=== PATIENT | female | born 1975 ===

== ENCOUNTER 2016-11-09 09:29 | Emergency (ER) | payer OTHER ==
[2016-11-09 09:41] VITALS: RESP 16; TEMP 97.7; O2SAT 98
[2016-11-09 10:16] LABS: RBC URINE 21 /hpf (0-3); URINE BACTERIA RARE (<OCC); URINE BILIRUBIN NEGATIVE (NEGATIVE); URINE BLOOD 1+ (NEGATIVE); URINE COLOR Amber (YELLOW); URINE GLUCOSE (UA) NORMAL (Normal); URINE KETONE NEGATIVE (NEGATIVE); URINE LEUKOCYTE ESTERASE 2+ Leu/uL (Negative); URINE PROTEIN 2+ mg/dL (NEGATIVE); WBC URINE 50 /hpf (0-5)
[2016-11-09 10:20] LABS: BASO # 0.1 K/uL (0.0-0.2); BASO % 0.6 % (0.0-2.0); EOS # 0.1 K/uL (0.0-0.7); EOS % 1.1 % (0.0-4.0); HEMATOCRIT 34.7 % (34.0-47.0); LYMPH # 1.9 K/uL (1.0-4.3); LYMPH % 15.8 % (20.0-40.0); MEAN CELL VOLUME 93.6 fL (81.0-99.0); MEAN CORPUSCULAR HEMOGLOBIN 31.7 pg (27.0-31.0); MEAN CORPUSCULAR HGB CONC 33.9 g/dL (33.0-37.0); MEAN PLATELET VOLUME 9.7 fL (7.2-11.7); MONO # 0.7 K/uL (0.0-0.8); MONO % 6.2 % (0.0-10.0); RED CELL DISTRIBUTION WIDTH 13.2 % (11.5-14.5); WHITE BLOOD COUNT 11.8 K/uL (4.8-10.8)
[2016-11-09 10:36] LABS: CHLORIDE 104 mmol/L (98-107); POTASSIUM 3.9 mmol/L (3.6-5.2); SODIUM 141 mmol/L (132-148)
[2016-11-09 10:38] LABS: GFR AFRICAN-AMERICAN > 60
[2016-11-09 10:39] LABS: ALKALINE PHOSPHATASE 130 U/L (38-126); ALT/SGPT 148 U/L (9-52); AST/SGOT 75 U/L (14-36); BLOOD UREA NITROGEN 9 mg/dL (7-17); CARBON DIOXIDE 23 mmol/L (22-30); GLUCOSE,RANDOM 130 mg/dL (65-105); TOTAL PROTEIN 8.5 g/dL (6.3-8.3)
[2016-11-09 10:40] LABS: ALB/GLOB RATIO 0.8 (1.0-2.1); CALCIUM 8.9 mg/dl (8.6-10.4)
--- NOTE | 2016-11-09 11:31 | CT ---
PROCEDURE: CT Abdomen and Pelvis without intravenous contrast HISTORY: left flank pain - ? kidney stone COMPARISON: None. TECHNIQUE: Without contrast.. Contrast Dose: 0 Radiation dose: Total exam DLP = 939.05 mGy-cm. This CT exam was performed using one or more of the following dose reduction techniques: Automated exposure control, adjustment of the mA and/or kV according to patient size, and/or use of iterative reconstruction technique. FINDINGS: LOWER THORAX: Unremarkable. LIVER: Unremarkable. No gross lesion or ductal dilatation. GALLBLADDER AND BILE DUCTS: Cholelithiasis. Probable sludge within the gallbladder, dependently. No mural thickening or pericholecystic fluid. PANCREAS: Unremarkable. No gross lesion or ductal dilatation. SPLEEN: Unremarkable. ADRENALS: Unremarkable. No mass. KIDNEYS AND URETERS: Tiny left renal nonobstructing calculus, 2-3 mm. No right renal calculus. No renal mass or hydronephrosis. There is mild left perigastric stranding common nonspecific. There is no perinephric fluid. There is no hydroureter or ureteral calculus. There is mild left periureteric stranding. This may indicate a recently passed urinary calculus. VASCULATURE: Unremarkable. No aortic aneurysm. BOWEL: Mild sigmoid diverticulosis. No evidence of diverticulitis. No other abnormal bowel loops are identified. Scattered colonic diverticulae are noted elsewhere. No bowel obstruction APPENDIX: Unremarkable. Normal appendix. PERITONEUM: Unremarkable. No free fluid. No free air. LYMPH NODES: Unremarkable. No enlarged lymph nodes. BLADDER: Unremarkable. REPRODUCTIVE: Uterus significant for intrauterine device. Left ovarian cyst, 4.0 cm. Recommend evaluation with transvaginal pelvic ultrasound examination. 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 OTHER FINDINGS: None. IMPRESSION: No evidence of urinary tract obstruction. Tiny nonobstructing left renal calculus. Mild left perinephric stranding and left periureteric stranding indicative of possible recently passed left urinary calculus. Please correlate clinically. 4 cm left ovarian cyst. Recommend evaluation with transvaginal pelvic ultrasound. Additional minor findings as above.
[2016-11-09 12:17] VITALS: BP 119/85; PULSE 70
--- NOTE | 2016-11-09 13:19 | C.PDOC ---
History Of Present Illness 41 y/o female presents to ED with complaints of left flank pain for 4 days. Patient states she saw PMD yesterday was prescribed antibiotics and Naprosyn with no relief which prompted visit to ed today. Patient reprots mild nausea but denies fever, chills, dysuria, hematuria, vomiting or any other complaints at this time. Time Seen by Provider: 11/09/16 09:39 Chief Complaint (Nursing): Back Pain History Per: Patient History/Exam Limitations: no limitations Onset/Duration Of Symptoms: Days Current Symptoms Are (Timing): Still Present Quality Of Discomfort: "Pain" Past Medical History Reviewed: Historical Data, Nursing Documentation, Vital Signs Vital Signs: Last Vital Signs Temp 97.7 F 11/09/16 09:36 Pulse 70 11/09/16 12:16 Resp 16 11/09/16 12:16 BP 119/85 11/09/16 12:16 Pulse Ox 98 11/09/16 13:21 - Medical History PMH: Anemia, Diabetes Surgical History: No Surg Hx Family History: States: No Known Family Hx - Social History Hx Alcohol Use: Yes Hx Substance Use: No Review Of Systems Except As Marked, All Systems Reviewed And Found Negative. Constitutional: Negative for: Fever, Chills Gastrointestinal: Negative for: Nausea, Vomiting Genitourinary: Negative for: Dysuria, Hematuria Musculoskeletal: Positive for: Other (Flank pain) Skin: Negative for: Rash Neurological: Negative for: Weakness, Numbness Physical Exam - Physical Exam Appears: Non-toxic, No Acute Distress Skin: Warm, Dry, No Rash Head: Atraumatic, Normacephalic Eye(s): bilateral: Normal Inspection Oral Mucosa: Moist Neck: Normal ROM, Supple Chest: Symmetrical Gastrointestinal/Abdominal: Soft, No Tenderness, No Guarding, No Rebound Back: CVA Tenderness, No Vertebral Tenderness, No Paraspinal Tenderness Extremity: Normal ROM, Capillary Refill (<2 seconds), No Deformity, No Swelling Neurological/Psych: Oriented x3, Normal Motor, Normal Sensation ED Course And Treatment - Laboratory Results Result Diagrams: 11/09/16 10:00 11/09/16 10:00 O2 Sat by Pulse Oximetry: 98 (RA) Pulse Ox Interpretation: Normal Disposition - Disposition Disposition: HOME/ ROUTINE Disposition Time: 11:40 Condition: GOOD Additional Instructions: Thank you for letting us take care of you today. Your provider was Dr. Matos. You were treated for a UTI and passed kidney stone. The emergency medical care you received today was directed at your acute symptoms. If you were prescribed any medication, please fill it and take as directed. It may take several days for your symptoms to resolve. Return to the Emergency Department if your symptoms worsen, do not improve, or if you have any other problems. Please contact your doctor or call one of the physicians/clinics you have been referred to that are listed on the Patient Visit Information form that is included in your discharge packet. Bring any paperwork you were given at discharge with you along with any medications you are taking to your follow up visit. Our treatment cannot replace ongoing medical care by a primary care provider (PCP) outside of the emergency department. Thank you for allowing the [facility] team to be part of your care today. Follow up with your doctor in 2-3 days for re-evaluation and further management. Continue taking the medication that you were already prescribed. Instructions: Urinary Tract Infection in Women (ED) Forms: Gen Discharge Inst Thai Print Language: SLOVENIAN - Clinical Impression Clinical Impression: UTI (urinary tract infection), Kidney stone - Scribe Statement The provider has reviewed the documentation as recorded by the Dolores Amin All medical record entries made by the Dolores were at my direction and personally dictated by me. I have reviewed the chart and agree that the record accurately reflects my personal performance of the history, physical exam, medical decision making, and the department course for this patient. I have also personally directed, reviewed, and agree with the discharge instructions and disposition.
== END 2016-11-09 12:16 | disposition home or self-care (01) ==
LOC: C.ER 09:29
DX: N20.0 Calculus of kidney (principal); N39.0 Urinary tract infection, site not specified
CPT/HCPCS: 74176; 80053; 81001; 84703; 85025; 96374; 99283; J1885

== ENCOUNTER 2016-11-21 08:35 | Inpatient (IN) | payer OTHER ==
[2016-11-21] MEDS ORDERED: Sodium Chloride 0.9% 1,000 ML IV ONE ×2 (09:09→12:18)
--- NOTE | 2016-11-21 09:12 | C.PDOC ---
History Of Present Illness 41 yo female who recently diagnosed with left kidney stones 2 weeks ago, comes in for evaluation of lower back pain and left groin pain worsen for past few weeks. Pt admits was seen here in ED on 11/09/16 when was diagnosed with UTI, received abx Cipro with mild improvement in back pain. For past few days, developed chills, fever, and worsening of lower back pain. Otherwise, pt denies sore throat, neck pain, cough, CP, SOB, wheezing, diaphoresis, V/D, UTI sx, hematuria, denies vaginal irritation or discharges. Ambulate to Ed for evaluation, not in any apparent distress. Time Seen by Provider: 11/21/16 08:44 Chief Complaint (Nursing): Female Genitourinary History Per: Patient History/Exam Limitations: no limitations Onset/Duration Of Symptoms: Days Current Symptoms Are (Timing): Still Present Past Medical History Reviewed: Historical Data, Nursing Documentation, Vital Signs Vital Signs: Last Vital Signs Temp 98.3 F 11/21/16 11:57 Pulse 74 11/21/16 11:57 Resp 16 11/21/16 11:57 BP 102/65 11/21/16 11:57 Pulse Ox 98 11/21/16 12:12 - Medical History PMH: Anemia, Diabetes, Kidney Stones, Chronic Kidney Disease Family History: States: No Known Family Hx - Social History Hx Alcohol Use: No Hx Substance Use: No - Immunization History Hx Tetanus Toxoid Vaccination: No Hx Influenza Vaccination: Yes Hx Pneumococcal Vaccination: No Review Of Systems Except As Marked, All Systems Reviewed And Found Negative. Constitutional: Positive for: Fever (Subjective ), Chills ENT: Negative for: Throat Pain Cardiovascular: Negative for: Chest Pain Respiratory: Negative for: Cough, Shortness of Breath, Wheezing Gastrointestinal: Negative for: Vomiting, Abdominal Pain, Diarrhea Genitourinary: Positive for: Other ((+) Left groin pain). Negative for: Hematuria, Vaginal Discharge Musculoskeletal: Positive for: Back Pain (Lower ). Negative for: Neck Pain Physical Exam - Physical Exam Appears: Well, Non-toxic, No Acute Distress Skin: Normal Color, Warm, Dry, No Rash Eye(s): bilateral: PERRL Nose: No Flaring, No Discharge Oral Mucosa: Moist, No Drooling Tongue: Normal Appearing Lips: Normal Appearing Throat: No Erythema, No Exudate, No Drooling Neck: Supple Cardiovascular: Rhythm Regular Respiratory: No Decreased Breath Sounds, No Accessory Muscle Use, No Stridor, No Wheezing, No Plerual Rub Gastrointestinal/Abdominal: Bowel Sounds, No Tenderness, No Organomegaly, No Distention, No Guarding Back: No CVA Tenderness, Paraspinal Tenderness (diffused lumbar) Extremity: Normal ROM, No Pedal Edema, No Deformity ED Course And Treatment - Laboratory Results Result Diagrams: 11/21/16 09:37 11/21/16 09:37 Lab Interpretation: Abnormal O2 Sat by Pulse Oximetry: 98 (RA) Pulse Ox Interpretation: Normal - CT Scan/US US - Abdomen Other Rad Studies (CT/US): Read By Radiologist, Radiology Report Reviewed CT/US Interpretation: HISTORY: Left flank pain. COMPARISON: None. TECHNIQUE : Grayscale imaging was performed. FINDINGS: LIVER: Measures 18.6 in length. There is diffuse increased echogenicity of the liver parenchyma. No mass. No intrahepatic bile duct dilatation. GALLBLADDER: There are no gallstones, wall thickening or pericholecystic fluid. The sonographic Bustamante's sign is negative. COMMON BILE DUCT: Measures 4.0 in transverse dimension. No stones. No dilatation. PANCREAS: Unremarkable as visualized. No mass. No ductal dilatation. RIGHT KIDNEY: Measures 13.2cm. Normal echogenicity. No calculus, mass, or hydronephrosis. LEFT KIDNEY: Measures 13.5cm. Normal echogenicity. No calculus, mass, or hydronephrosis. SPLEEN: Normal in size and contour. No mass. AORTA: No aneurysmal dilatation. IVC: Unremarkable. OTHER FINDINGS: None . RIGHT KIDNEY: Measures: 18.6 cm. IMPRESSION: No hydronephrosis or nephrolithiasis. Mild hepatomegaly. Diffuse increased echogenicity in the liver may reflect hepatic steatosis however parenchymal infectious/ inflammatory etiologies cannot be entirely excluded. Clinical and laboratory correlation is advised. US - Transvaginal Other Rad Studies (CT/US): Read By Radiologist, Radiology Report Reviewed CT/US Interpretation: HISTORY: Fever, left groin pain. COMPARISON: None available. TECHNIQUE: Transvaginal pelvic ultrasound was performed. FINDINGS : UTERUS: Measures 9.5 x 4.9 x 6.1 cm. Anteverted, normal in size and appearance. No fibroid or other mass lesion seen. ENDOMETRIUM: Measures 5.0 mm in diameter. An intrauterine device remains in satisfactory position. CERVIX : No cervical abnormality identified. RIGHT OVARY: Measures 2.8 x 2.0 x 2.2 cm. No solid mass. Normal flow. LEFT OVARY: Measures 4.0 x 1.9 x 3.5 cm. No solid mass. Normal flow. There is a 1.6 x 1.6 x 2.0 cm cyst. FREE FLUID: No significant free fluid noted. OTHER FINDINGS: Limited evaluation of the left groin does not reveal any abnormality. IMPRESSION: IUD remains in satisfactory position. No sonographic abnormality in the left groin. Progress Note: Pt was OBS in ED for 3 hours and remained stable. On re-eval, pt is afebrile, hemodynamicaly stable. Non-toxic. Pt still c/o lower back pain. Abd: benign, (-)guarding, (-) rebound. Neurologicaly intact. Blood work review (+)leukocytosis. UA c/w UTI. Imaging review and appears without acute abnormalities. Pt received Rocephin, Ucx, Blood Cx- pending. case discussed with ED attending and admission recommend with Dx: Acute pyelonephritis, failed outpt tx. Case discussed [facility] Hospitalist and admission arranged. Medical Decision Making Medical Decision Making: PLAN: * US - Abdomen, Transvaginal * CBC * CMP * Influenza * HCG * Urinalysis * Tylenol PO * Toradol IVP * Sodium Chloride IV Disposition Counseled Patient/Family Regarding: Studies Performed, Diagnosis, Need For Followup, Rx Given - Disposition Referrals: Gale Suarez [Staff Provider] - Disposition: HOSPITALIZED Disposition Time: 11:27 Condition: STABLE Forms: [facility] (Czech) - Clinical Impression Clinical Impression: Pyelonephritis - PA / BOAT PAINTER / Resident Statement MD/DO has reviewed & agrees with the documentation as recorded. - Scribe Statement The provider has reviewed the documentation as recorded by the Scribe Caroline Lugo All medical record entries made by the Scribe were at my direction and personally dictated by me. I have reviewed the chart and agree that the record accurately reflects my personal performance of the history, physical exam, medical decision making, and the department course for this patient. I have also personally directed, reviewed, and agree with the discharge instructions and disposition.
[2016-11-21 09:43] LABS: BASO # 0.1 K/uL (0.0-0.2); BASO % 0.5 % (0.0-2.0); EOS % 0.2 % (0.0-4.0); HEMATOCRIT 35.4 % (34.0-47.0); LYMPH % 12.6 % (20.0-40.0); MEAN CELL VOLUME 92.4 fL (81.0-99.0); MEAN CORPUSCULAR HEMOGLOBIN 31.2 pg (27.0-31.0); MEAN CORPUSCULAR HGB CONC 33.8 g/dL (33.0-37.0); MEAN PLATELET VOLUME 8.9 fL (7.2-11.7); MONO # 1.4 K/uL (0.0-0.8); MONO % 8.9 % (0.0-10.0); RED CELL DISTRIBUTION WIDTH 12.7 % (11.5-14.5); WHITE BLOOD COUNT 16.2 K/uL (4.8-10.8)
[2016-11-21] MEDS ORDERED: Sodium Chloride 0.9% 1,000 ML ONE ×2 (09:44→13:24)
[2016-11-21 09:50] LABS: CHLORIDE 96 mmol/L (98-107)
[2016-11-21 09:51] LABS: POTASSIUM 3.9 mmol/L (3.6-5.2); SODIUM 134 mmol/L (132-148)
[2016-11-21 09:53] LABS: ALKALINE PHOSPHATASE 144 U/L (38-126); ALT/SGPT 45 U/L (9-52); AST/SGOT 37 U/L (14-36); BILIRUBIN,TOTAL 0.7 mg/dL (0.2-1.3); BLOOD UREA NITROGEN 7 mg/dL (7-17); CARBON DIOXIDE 26 mmol/L (22-30); GFR AFRICAN-AMERICAN > 60; GLUCOSE,RANDOM 118 mg/dL (65-105); RBC URINE 16 /hpf (0-3); TOTAL PROTEIN 8.8 g/dL (6.3-8.3); URINE BACTERIA OCC (<OCC); URINE BILIRUBIN NEGATIVE (NEGATIVE); URINE BLOOD 1+ (NEGATIVE); URINE COLOR Yellow (YELLOW); URINE GLUCOSE (UA) NORMAL (Normal); URINE KETONE NEGATIVE (NEGATIVE); URINE LEUKOCYTE ESTERASE 2+ Leu/uL (Negative); URINE PROTEIN NEGATIVE (NEGATIVE); WBC URINE 22 /hpf (0-5)
--- NOTE | 2016-11-21 11:11 | US ---
HISTORY: Left flank pain COMPARISON: None. TECHNIQUE: Grayscale imaging was performed. FINDINGS: LIVER: Measures 18.6 in length. There is diffuse increased echogenicity of the liver parenchyma. No mass. No intrahepatic bile duct dilatation. GALLBLADDER: There are no gallstones, wall thickening or pericholecystic fluid. The sonographic Bustamante's sign is negative. COMMON BILE DUCT: Measures 4.0 in transverse dimension. No stones. No dilatation. PANCREAS: Unremarkable as visualized. No mass. No ductal dilatation. RIGHT KIDNEY: Measures 13.2cm. Normal echogenicity. No calculus, mass, or hydronephrosis. LEFT KIDNEY: Measures 13.5cm. Normal echogenicity. No calculus, mass, or hydronephrosis. SPLEEN: Normal in size and contour. No mass. AORTA: No aneurysmal dilatation. IVC: Unremarkable. OTHER FINDINGS: None . RIGHT KIDNEY: Measures: 18.6 cm. IMPRESSION: No hydronephrosis or nephrolithiasis. Mild hepatomegaly. Diffuse increased echogenicity in the liver may reflect hepatic steatosis however parenchymal infectious/ inflammatory etiologies cannot be entirely excluded. Clinical and laboratory correlation is advised.
--- NOTE | 2016-11-21 11:14 | US ---
HISTORY: Fever, left groin pain COMPARISON: None available. TECHNIQUE: Transvaginal pelvic ultrasound was performed. FINDINGS: UTERUS: Measures 9.5 x 4.9 x 6.1 cm. Anteverted, normal in size and appearance. No fibroid or other mass lesion seen. ENDOMETRIUM: Measures 5.0 mm in diameter. An intrauterine device remains in satisfactory position. CERVIX: No cervical abnormality identified. RIGHT OVARY: Measures 2.8 x 2.0 x 2.2 cm. No solid mass. Normal flow. LEFT OVARY: Measures 4.0 x 1.9 x 3.5 cm. No solid mass. Normal flow. There is a 1.6 x 1.6 x 2.0 cm cyst. FREE FLUID: No significant free fluid noted. OTHER FINDINGS: Limited evaluation of the left groin does not reveal any abnormality. IMPRESSION: IUD remains in satisfactory position. No sonographic abnormality in the left groin.
[2016-11-21] MEDS ORDERED: cefTRIAXone IV 1 gm in Dextros 50 ML IV ONE (11:26)
[2016-11-21] MEDS ORDERED: cefTRIAXone IV 1 gm in Dextros 50 ML IVPB ONE (11:38)
--- NOTE | 2016-11-21 13:39 | CP.PCM.HP ---
<David Pulliam - Last Filed: 11/21/16 15:46> History of Present Illness - History of Present Illness History of Present Illness: PGY1 Medicine Note for Dr. Cazares Patient is a 41 year old female with recent PMHx of UTI with possible kidney stone two weeks ago, and recent completion of a course of Cipro 5 days ago at home. Patient has no other PMH and take no medications regularly at home. She presents to the ED today for bilateral lower back pain radiating to the lower abdomen, left worse than right. The pain had been slightly improved with the Cipro but worsened after the end of the course. Associated symptoms include subjective fever, chills, loss of appetite, headache, and dizziness since yesterday. Patient did not take her temperature at home or try OTC medications. Denies sick contacts, nausea, vomiting, abdominal pain, diarrhea, constipation, dysuria, urinary frequency, hematuria PMD: Dr. Gale Suarez, [place] [facility]: [facility], [address] [place] [address] PMHx: UTI, possible passed kidney stone SurgHx: denies Home Medications: none Allergies: NKDA FamHx: denies SocialHx: lives with family; denies tobacco/alcohol/illicit drug use; works in a warehouse Present on Admission - Present on Admission Any Indicators Present on Admission: No Review of Systems - Constitutional Constitutional: As Per HPI, Fever, Headache. absent: Chills, Excessive Sweating , Fatigue, Increased Appetite, Sleep Apnea, Weakness - EENT Eyes: absent: Change in Vision, Loss of Vision Nose/Mouth/Throat: absent: Nasal Congestion, Nasal Discharge, Post Nasal Drip, Sore Throat - Cardiovascular Cardiovascular: absent: Chest Pain, Dyspnea, Edema, Pedal Edema, Syncope - Respiratory Respiratory: absent: Cough, Dyspnea on Exertion, Chest Congestion - Gastrointestinal Gastrointestinal: Abdominal Pain (LLQ). absent: Bloating, Constipation, Cramping, Diarrhea, Dysphagia, Nausea, Vomiting - Genitourinary Genitourinary: Flank Pain (b/l), Hx Renal/Bladder Calculi (was told she passed a kidney stone on the L side 2 weeks ago ). absent: Change in Urinary Stream, Difficulty Urinating, Dysuria - Musculoskeletal Musculoskeletal: Back Pain (LBP b/l). absent: Numbness, Tingling - Neurological Neurological: absent: Dizziness, Numbness, Syncope - Psychiatric Psychiatric: Change in Appetite (decreased). absent: Depression - Endocrine Endocrine: absent: Excessive Sweating, Fatigue, Palpitations, Polyuria Past Patient History - Past Social History Smoking Status: Never Smoked - RENAL Hx Chronic Kidney Disease: Yes Hx Kidney Stones: Yes - ENDOCRINE/METABOLIC Hx Diabetes Mellitus Type 2: Yes - HEMATOLOGICAL/ONCOLOGICAL Hx Anemia: Yes - GASTROINTESTINAL Hx Gastrointestinal Disorders: Yes Other/Comment: PMD told patient that she has an inflammed liver. - PSYCHIATRIC Hx Substance Use: No - SURGICAL HISTORY Hx Surgeries: No - ANESTHESIA Hx Anesthesia: No Meds Allergies/Adverse Reactions: Allergies Allergy/AdvReac Type Severity Reaction Status Date / Time No Known Allergies Allergy Verified 11/09/16 09:41 Physical Exam - Constitutional Appears: Non-toxic, No Acute Distress - Head Exam Head Exam: ATRAUMATIC, NORMOCEPHALIC - Eye Exam Eye Exam: EOMI, Normal appearance. absent: Scleral icterus - ENT Exam ENT Exam: Mucous Membranes Moist - Neck Exam Neck exam: Negative for: Lymphadenopathy, Tenderness - Respiratory Exam Respiratory Exam: Clear to Auscultation Bilateral, NORMAL BREATHING PATTERN. absent: Accessory Muscle Use, Rales, Wheezes, Respiratory Distress - Cardiovascular Exam Cardiovascular Exam: REGULAR RHYTHM, +S1, +S2 - GI/Abdominal Exam GI & Abdominal Exam: Normal Bowel Sounds, Soft, Tenderness (LLQ). absent: Diminished Bowel Sounds, Distended, Firm, Guarding, Rigid - Rectal Exam Rectal Exam: Deferred - Extremities Exam Extremities exam: Positive for: normal inspection, pedal pulses present. Negative for: calf tenderness, pedal edema, tenderness - Back Exam Back exam: CVA tenderness (L), CVA tenderness (R). absent: vertebral tenderness - Neurological Exam Neurological exam: Alert, Oriented x3 - Psychiatric Exam Psychiatric exam: Normal Affect, Normal Mood - Skin Skin Exam: Dry, Intact, Normal Color, Warm Results - Vital Signs Recent Vital Signs: Last Vital Signs Temp 98.3 F 11/21/16 11:57 Pulse 74 11/21/16 11:57 Resp 16 11/21/16 11:57 BP 102/65 11/21/16 11:57 Pulse Ox 98 11/21/16 12:18 - Labs Result Diagrams: 11/21/16 09:37 11/21/16 09:37 Labs: Laboratory Results - last 24 hr 11/21/16 11/21/16 11/21/16 09:11 09:37 09:37 WBC 16.2 H RBC 3.83 Hgb 12.0 Hct 35.4 MCV 92.4 MCH 31.2 H MCHC 33.8 RDW 12.7 Plt Count 359 D MPV 8.9 Neut % (Auto) 77.8 H Lymph % (Auto) 12.6 L Walton % (Auto) 8.9 Eos % (Auto) 0.2 Baso % (Auto) 0.5 Neut # 12.6 H Lymph # 2.0 Walton # 1.4 H Eos # 0.0 Baso # 0.1 Sodium 134 Potassium 3.9 Chloride 96 L Carbon Dioxide 26 Anion Gap 16 BUN 7 Creatinine 0.6 L Est GFR ( Amer) > 60 Est GFR (Non-Af Amer) > 60 Random Glucose 118 H Calcium 9.0 Total Bilirubin 0.7 AST 37 H D ALT 45 Alkaline Phosphatase 144 H Total Protein 8.8 H Albumin 4.4 Globulin 4.4 H Albumin/Globulin Ratio 1.0 Lipase 47 Urine Color Urine Clarity Urine pH Ur Specific [place] Urine Protein Urine Glucose (UA) Urine Ketones Urine Blood Urine Nitrate Urine Bilirubin Urine Urobilinogen Ur Leukocyte Esterase Urine WBC (Auto) Urine RBC (Auto) Ur Squamous Epith Cells Urine Bacteria Urine HCG, Qual Influenza Typ A,B (EIA) Negative for flu a/b 11/21/16 09:37 WBC RBC Hgb Hct MCV MCH MCHC RDW Plt Count MPV Neut % (Auto) Lymph % (Auto) Walton % (Auto) Eos % (Auto) Baso % (Auto) Neut # Lymph # Walton # Eos # Baso # Sodium Potassium Chloride Carbon Dioxide Anion Gap BUN Creatinine Est GFR ( Amer) Est GFR (Non-Af Amer) Random Glucose Calcium Total Bilirubin AST ALT Alkaline Phosphatase Total Protein Albumin Globulin Albumin/Globulin Ratio Lipase Urine Color Yellow Urine Clarity Hazy Urine pH 6.0 Ur Specific [place] 1.012 Urine Protein Negative Urine Glucose (UA) Normal Urine Ketones Negative Urine Blood 1+ H Urine Nitrate Negative Urine Bilirubin Negative Urine Urobilinogen 2.0 H Ur Leukocyte Esterase 2+ H Urine WBC (Auto) 22 H Urine RBC (Auto) 16 H Ur Squamous Epith Cells 8 H Urine Bacteria Occ H Urine HCG, Qual Negative Influenza Typ A,B (EIA) Assessment & Plan - Assessment and Plan (Free Text) Plan: UTI - r/o pyelonephritis Transvaginal US 11/21/16 - IUD remains in satisfactory position. No sonographic abnormality in the left groin. Abd/Bladder US 11/21/16 - No hydronephrosis or nephrolithiasis. Mild hepatomegaly. Diffuse increased echogenicity in the liver may reflect hepatic steatosis however parenchymal infectious/ inflammatory etiologies cannot be entirely excluded. Clinical and laboratory correlation is advised f/u Abd/Pelvis CT with IV contrast Need repeat UA - first UA had 8 epith cells f/u urine culture f/u blood culture Started on Vanco 1gm Q12 Started on Cefepime 1gm Q12 Prophylactic Care Lovenox 40mg SC daily Pepcid 20mg PO daily SCDs Case discussed with Dr. Debora Rdzn PGY1 <Dominick Cazares - Last Filed: 11/21/16 18:27> Results - Vital Signs Recent Vital Signs: Last Vital Signs Temp 102.1 F H 11/21/16 18:00 Pulse 96 H 11/21/16 17:03 Resp 20 11/21/16 17:03 BP 122/82 11/21/16 17:03 Pulse Ox 97 11/21/16 17:03 - Labs Result Diagrams: 11/21/16 09:37 11/21/16 09:37 Labs: Laboratory Results - last 24 hr 11/21/16 11/21/16 11/21/16 09:11 09:37 09:37 WBC 16.2 H RBC 3.83 Hgb 12.0 Hct 35.4 MCV 92.4 MCH 31.2 H MCHC 33.8 RDW 12.7 Plt Count 359 D MPV 8.9 Neut % (Auto) 77.8 H Lymph % (Auto) 12.6 L Walton % (Auto) 8.9 Eos % (Auto) 0.2 Baso % (Auto) 0.5 Neut # 12.6 H Lymph # 2.0 Walton # 1.4 H Eos # 0.0 Baso # 0.1 Sodium 134 Potassium 3.9 Chloride 96 L Carbon Dioxide 26 Anion Gap 16 BUN 7 Creatinine 0.6 L Est GFR ( Amer) > 60 Est GFR (Non-Af Amer) > 60 Random Glucose 118 H Calcium 9.0 Total Bilirubin 0.7 AST 37 H D ALT 45 Alkaline Phosphatase 144 H Total Protein 8.8 H Albumin 4.4 Globulin 4.4 H Albumin/Globulin Ratio 1.0 Lipase 47 Urine Color Urine Clarity Urine pH Ur Specific [place] Urine Protein Urine Glucose (UA) Urine Ketones Urine Blood Urine Nitrate Urine Bilirubin Urine Urobilinogen Ur Leukocyte Esterase Urine WBC (Auto) Urine RBC (Auto) Ur Squamous Epith Cells Urine Bacteria Urine HCG, Qual Influenza Typ A,B (EIA) Negative for flu a/b 11/21/16 11/21/16 09:37 15:44 WBC RBC Hgb Hct MCV MCH MCHC RDW Plt Count MPV Neut % (Auto) Lymph % (Auto) Walton % (Auto) Eos % (Auto) Baso % (Auto) Neut # Lymph # Walton # Eos # Baso # Sodium Potassium Chloride Carbon Dioxide Anion Gap BUN Creatinine Est GFR ( Amer) Est GFR (Non-Af Amer) Random Glucose Calcium Total Bilirubin AST ALT Alkaline Phosphatase Total Protein Albumin Globulin Albumin/Globulin Ratio Lipase Urine Color Yellow Yellow Urine Clarity Hazy Clear Urine pH 6.0 6.0 Ur Specific [place] 1.012 > 1.060 H Urine Protein Negative Negative Urine Glucose (UA) Normal Normal Urine Ketones Negative Negative Urine Blood 1+ H Negative Urine Nitrate Negative Negative Urine Bilirubin Negative Negative Urine Urobilinogen 2.0 H 2.0 H Ur Leukocyte Esterase 2+ H 3+ H Urine WBC (Auto) 22 H 56 H Urine RBC (Auto) 16 H 5 H Ur Squamous Epith Cells 8 H 1 Urine Bacteria Occ H Rare Urine HCG, Qual Negative Influenza Typ A,B (EIA) Attending/Attestation - Attestation I have personally seen and examined this patient.: Yes I have fully participated in the care of the patient.: Yes I have reviewed all pertinent clinical information: Yes Notes (Text): 11/21/16 18:25 Medical attending: Patient was seen and examined by me, agree with the above note by biomedical manager. This is a 41-year-old female who was recently here came to the emergency room about 2-3 weeks ago with flank pain at that time and was suspected to have a small kidney stone that passed on its own. She was given antibiotics at that time however she now returns again with back pain bilaterally with fevers and chills. In the emergency room she had ultrasound of the abdomen which did not demonstrate hydronephrosis. She did have another UA done which again suggested at least a UTI. Unfortunately the previous time the patient was here she did not have a urine culture Patient will be brought in for IV antibiotics, were also get a CT scan with IV contrast give us further information as well Patient will need to be on intravenous fluids. Thank you very much, Dominick Cazares
[2016-11-21] MEDS ORDERED: Vancomycin 1 GM 1 GM/250 ML BAG IVPB ONE (13:58)
[2016-11-21] MEDS: Vancomycin 1 gm/NS 200 ml 1 GM/200 ML BAG IVPB SCH (14:03)
[2016-11-21] MEDS ORDERED: Iodixanol 320 MG/ML 100 ML BOTTLE IV ONE (14:44)
[2016-11-21] MEDS ORDERED: Iodixanol 320 mg/ml 150 ml Bottle IV ONE (14:46)
[2016-11-21 15:55] LABS: RBC URINE 5 /hpf (0-3); URINE BACTERIA RARE (<OCC); URINE BILIRUBIN NEGATIVE (NEGATIVE); URINE BLOOD NEGATIVE (NEGATIVE); URINE COLOR Yellow (YELLOW); URINE GLUCOSE (UA) NORMAL (Normal); URINE KETONE NEGATIVE (NEGATIVE); URINE LEUKOCYTE ESTERASE 3+ Leu/uL (Negative); URINE PROTEIN NEGATIVE (NEGATIVE); WBC URINE 56 /hpf (0-5)
--- NOTE | 2016-11-21 16:00 | CT ---
PROCEDURE: CT scan of the abdomen and pelvis dated 11/21/2016 HISTORY: Flank pain b/l with UTI COMPARISON: Comparison made with CT scan abdomen pelvis 11/09/2016 TECHNIQUE: Contiguous axial images of the abdomen and pelvis. Oral contrast was administered. No IV contrast given. Coronal and Sagittal reformats generated. Radiation dose: Total exam DLP = 659.21 mGy-cm. This CT exam was performed using one or more of the following dose reduction techniques: Automated exposure control, adjustment of the mA and/or kV according to patient size, and/or use of iterative reconstruction technique. Contrast dose: 100 cc Visipaque [id number] FINDINGS: LOWER THORAX: Minor passive atelectasis both posterior lower lung blackmon. There appears to be some linear scarring in the left lingular region as well extends to the pleural surface. No effusion or basilar pneumothorax. Small hiatal hernia normal slight wall thickening of the distal esophagus likely due to protrusion of gastric mucosa. LIVER: The liver is enlarged measuring nearly 22 cm in CC dimension however this may in part be due to Lakisha's lobe diminutive appearing left lobe liver. Mild fatty hepatic infiltration. GALLBLADDER AND BILE DUCTS: Gallbladder is physiologically distended. There is a punctate calcific density seen within anterior inferior margin of the gallbladder lumen consistent with a tiny gallbladder calculus PANCREAS: Visualized portions of the pancreas grossly unremarkable. SPLEEN: Spleen exhibits normal size and attenuation pattern without mass collection or calcification. ADRENALS: No adrenal lesions seen. KIDNEYS AND URETERS: The kidneys demonstrate vague areas of low low-attenuation along the cortices of the of the upper and to a lesser degree lower poles consistent with this patient's history of pyelonephritis. . There appears to be some minimal infiltration changes within the perinephric fat more so on the right than left. Re- demonstrated is a small approximately 3 mm nonobstructing calculus anterior aspect midpole left renal collecting system unchanged BLADDER: Urinary bladder is appears incompletely distended which may in part account for slight thick-walled appearance however the possibility of a cystitis must be at considered the patient's history of UTI. . . There is a small approximately 19.5 mm cyst left kidney with what appears represent a small amount of periadnexal fluid. REPRODUCTIVE: In situ Copper-T IUD. APPENDIX: Normal appendix of best seen on coronal image number [id number]. . BOWEL: Evaluation of the bowel is limited due to the lack of oral contrast material. . The stomach is distended with food debris liquid and air. Visualized loops of small bowel exhibit normal contour and caliber. No evidence acute mechanical small bowel obstruction. The moderate amount of stool seen within the cecum at ascending and transverse colon consistent with mild fecal retention/constipation. . No definitive abnormal mural wall thickening. PERITONEUM: Unremarkable. No fluid collection. No free air. Small fat containing umbilical hernia. LYMPH NODES: Unremarkable. No enlarged lymph nodes. VASCULATURE: Unremarkable. No aortic aneurysm. BONES: Mild multilevel degenerative spondylosis of the lower thoracic and lumbar spine. OTHER FINDINGS: None. IMPRESSION: Findings consistent with bilateral pyelonephritis as described. The urinary bladder exhibit slight thick-walled appearance which may in part be due to incomplete distention however cystitis must be considered given the patient's history of UTI. . Approximatelyy 3 mm nonobstructing calculus anterior aspect midpole left renal collecting system unchanged from prior study. Hepatomegaly which may in part be due to Lakisha's lobe. Fatty hepatic infiltration. Cholelithiasis. Small fat containing umbilical hernia. In situ Copper-T IUD. Small left adnexal cyst
[2016-11-21] MEDS: Sodium Chloride 0.9% 1,000 ML IV SCH (18:54)
[2016-11-21] MEDS: Cefepime IV 1 gm in Dextrose 1 GM/50 ML BAG IVPB SCH (22:30)
[2016-11-22] MEDS: Sodium Chloride 0.9% 1,000 ML IV SCH ×4 (00:28→22:30)
[2016-11-22] MEDS: Vancomycin 1 gm/NS 200 ml 1 GM/200 ML BAG IVPB SCH ×2 (02:06→14:03)
[2016-11-22 06:57] LABS: BASO # 0.1 K/uL (0.0-0.2); BASO % 0.6 % (0.0-2.0); EOS # 0.1 K/uL (0.0-0.7); EOS % 0.9 % (0.0-4.0); HEMATOCRIT 30.5 % (34.0-47.0); LYMPH # 1.9 K/uL (1.0-4.3); LYMPH % 18.2 % (20.0-40.0); MEAN CELL VOLUME 93.2 fL (81.0-99.0); MEAN CORPUSCULAR HEMOGLOBIN 31.8 pg (27.0-31.0); MEAN CORPUSCULAR HGB CONC 34.1 g/dL (33.0-37.0); MONO # 1.1 K/uL (0.0-0.8); RED CELL DISTRIBUTION WIDTH 12.6 % (11.5-14.5); WHITE BLOOD COUNT 10.7 K/uL (4.8-10.8)
[2016-11-22 07:12] LABS: CHLORIDE 103 mmol/L (98-107); POTASSIUM 3.9 mmol/L (3.6-5.2); SODIUM 139 mmol/L (132-148)
[2016-11-22 07:14] LABS: BILIRUBIN,TOTAL 0.6 mg/dL (0.2-1.3); GFR AFRICAN-AMERICAN > 60
[2016-11-22 07:15] LABS: ALB/GLOB RATIO 0.9 (1.0-2.1); ALKALINE PHOSPHATASE 125 U/L (38-126); ALT/SGPT 52 U/L (9-52); AST/SGOT 33 U/L (14-36); BLOOD UREA NITROGEN 7 mg/dL (7-17); CARBON DIOXIDE 26 mmol/L (22-30); GLUCOSE,RANDOM 102 mg/dL (65-105); TOTAL PROTEIN 7.4 g/dL (6.3-8.3)
[2016-11-22 07:16] LABS: CALCIUM 8.2 mg/dl (8.6-10.4)
[2016-11-22] MEDS: Cefepime IV 1 gm in Dextrose 1 GM/50 ML BAG IVPB SCH (09:43)
[2016-11-22] MEDS: Enoxaparin 40 mg Syringe SC SCH (09:46)
--- NOTE | 2016-11-22 09:50 | CP.PCM.PN ---
<David Pulliam - Last Filed: 11/22/16 12:24> Subjective - Date & Time of Evaluation Date of Evaluation: 11/22/16 Time of Evaluation: 09:48 - Subjective Subjective: PGY1 Medicine Note for Dr. Cazares Patient seen and examined at bedside this morning. Patient is complaining of b/ l flank pains, worse on the left side that radiates around to the left inguinal area. Patient admits to subjective fevers and chills. States she is not hungry. Denies n/v, d/c, chest pain, sob or headaches. Objective - Vital Signs/Intake and Output Vital Signs (last 24 hours): Temp Pulse Resp BP Pulse Ox 99.1 F 91 H 20 119/76 9 L 11/22/16 07:34 11/22/16 07:34 11/22/16 07:34 11/22/16 07:34 11/22/16 07:34 Intake and Output: 11/22/16 11/22/16 06:59 18:59 Intake Total 2039 Balance 2039 - Medications Medications: Current Medications Acetaminophen (Tylenol 325mg Tab) 650 mg PO Q6 PRN PRN Reason: fever/ MILD pain (1-3) Enoxaparin Sodium (Lovenox) 40 mg SC DAILY [facility] Last Admin: 11/22/16 09:46 Dose: 40 mg Famotidine (Pepcid) 20 mg PO DAILY [facility] Last Admin: 11/22/16 09:46 Dose: 20 mg Cefepime HCl (Maxipime Iv 1 Gm Premix) 1 gm in 50 mls @ 100 mls/hr IVPB Q12H [facility] Last Admin: 11/22/16 09:43 Dose: 100 mls/hr Vancomycin/Sodium Chloride (Vancomycin 1 Gm/Ns 200 Ml) 1 gm in 200 mls @ 133.333 mls/hr IVPB Q12H [facility] Last Admin: 11/22/16 02:06 Dose: 133.333 mls/hr Sodium Chloride (Sodium Chloride 0.9%) 1,000 mls @ 100 mls/hr IV .Q10H [facility] Last Admin: 11/22/16 04:30 Dose: Not Given Ketorolac Tromethamine (Toradol) 30 mg IVP Q6 PRN PRN Reason: Pain, moderate (4-7) Last Admin: 11/22/16 00:25 Dose: 30 mg Pneumococcal Polyvalent Vaccine (Pneumovax 23 Vaccine) 0.5 ml IM .ONCE ONE Stop: 11/24/16 10:01 - Labs Labs: 11/22/16 06:43 11/22/16 06:43 - Constitutional Appears: Non-toxic, No Acute Distress - Head Exam Head Exam: ATRAUMATIC, NORMOCEPHALIC - Eye Exam Eye Exam: EOMI, Normal appearance. absent: Scleral icterus - ENT Exam ENT Exam: Mucous Membranes Moist - Respiratory Exam Respiratory Exam: Clear to Ausculation Bilateral, NORMAL BREATHING PATTERN. absent: Accessory Muscle Use, Rales, Wheezes, Respiratory Distress - Cardiovascular Exam Cardiovascular Exam: REGULAR RHYTHM, +S1, +S2 - GI/Abdominal Exam GI & Abdominal Exam: Soft, Tenderness (LLQ tender to palpation.), Normal Bowel Sounds. absent: Distended, Firm, Guarding, Rigid - Extremities Exam Extremities Exam: Normal Inspection. absent: Calf Tenderness, Pedal Edema - Back Exam Back Exam: CVA tenderness (L), CVA tenderness (R). absent: paraspinal tenderness, tenderness, vertebral tenderness - Neurological Exam Neurological Exam: Alert, Awake, Oriented x3 - Psychiatric Exam Psychiatric exam: Normal Affect, Normal Mood - Skin Skin Exam: Dry, Normal Color, Warm Assessment and Plan - Assessment and Plan (Free Text) Plan: Pyelonephritis b/l 2/2 UTI Transvaginal US 11/21/16 - IUD remains in satisfactory position. No sonographic abnormality in the left groin. Abd/Bladder US 11/21/16 - No hydronephrosis or nephrolithiasis. Mild hepatomegaly. Diffuse increased echogenicity in the liver may reflect hepatic steatosis however parenchymal infectious/ inflammatory etiologies cannot be entirely excluded. Clinical and laboratory correlation is advised Abd/Pelvis CT with IV contrast 11/21/16 - Findings consistent with bilateral pyelonephritis as described. The urinary bladder exhibit slight thick-walled appearance which may in part be due to incomplete distention however cystitis must be considered given the patient's history of UTI. . Approximatelyy 3 mm nonobstructing calculus anterior aspect midpole left renal collecting system unchanged from prior study. Hepatomegaly which may in part be due to Lakisha's lobe. Fatty hepatic infiltration. Cholelithiasis. Small fat containing umbilical hernia. In situ Copper-T IUD. Small left adnexal cyst First UA had 8 epith cells Repeat UA - Leuk Shirley 3+, Bact. Rare Urine culture - gram negative priscilla, awaiting sensitivities f/u blood culture Vanco 1gm Q12 - f/u vanco trough Cefepime 1gm Q12 - discontinued Started on Primaxin 500mg IVPB q6 NS @150mL/hr Prophylactic Care Lovenox 40mg SC daily Pepcid 20mg PO daily SCDs Case discussed with Dr. Debora Rdzn PGY1 <Dominick Cazares H - Last Filed: 11/22/16 15:25> Objective - Vital Signs/Intake and Output Vital Signs (last 24 hours): Temp Pulse Resp BP Pulse Ox 99.1 F 91 H 20 119/76 9 L 11/22/16 07:34 11/22/16 07:34 11/22/16 07:34 11/22/16 07:34 11/22/16 07:34 Intake and Output: 11/22/16 11/22/16 06:59 18:59 Intake Total 2039 Balance 2039 - Medications Medications: Current Medications Acetaminophen (Tylenol 325mg Tab) 650 mg PO Q6 PRN PRN Reason: fever/ MILD pain (1-3) Enoxaparin Sodium (Lovenox) 40 mg SC DAILY [facility] Last Admin: 11/22/16 09:46 Dose: 40 mg Famotidine (Pepcid) 20 mg PO DAILY [facility] Last Admin: 11/22/16 09:46 Dose: 20 mg Vancomycin/Sodium Chloride (Vancomycin 1 Gm/Ns 200 Ml) 1 gm in 200 mls @ 133.333 mls/hr IVPB Q12H [facility] Last Admin: 11/22/16 14:03 Dose: 133.333 mls/hr Imipenem/Cilastatin Sodium 500 (mg/ Sodium Chloride) 100 mls @ 100 mls/hr IVPB Q6H [facility] Last Admin: 11/22/16 12:07 Dose: 100 mls/hr Sodium Chloride (Sodium Chloride 0.9%) 1,000 mls @ 150 mls/hr IV .Q6H40M [facility] Last Admin: 11/22/16 14:16 Dose: 150 mls/hr Ketorolac Tromethamine (Toradol) 30 mg IVP Q6 PRN PRN Reason: Pain, moderate (4-7) Last Admin: 11/22/16 11:20 Dose: 30 mg Morphine Sulfate (Morphine) 2 mg IVP Q4 PRN PRN Reason: Pain, severe (8-10) Pneumococcal Polyvalent Vaccine (Pneumovax 23 Vaccine) 0.5 ml IM .ONCE ONE Stop: 11/24/16 10:01 - Labs Labs: 11/22/16 06:43 11/22/16 06:43 Attending/Attestation - Attestation I have personally seen and examined this patient.: Yes I have fully participated in the care of the patient.: Yes I have reviewed all pertinent clinical information, including history, physical exam and plan: Yes Notes (Text): 11/22/16 15:25 Medical attending: Patient was seen and examined by me, agrees the above note by the medical chemist Family member present. Patient was ok with this. She reported that she was still having bilateral flank pain. The CT suggested that the patient had pyelonephiritis - she has been on cefepime - however their is a pre-liminary gram negative culture. Because she was still having fever and flank pain - changed IV abx to primaxin IV Q6 Thank you very much, Dominick Cazares
[2016-11-22] MEDS ORDERED: Morphine 4 MG/ML VIAL IVP ONE (11:30)
[2016-11-22] MEDS: Imipenem/Cilastatin 500 MG in Sodium Chloride 100 ML IVPB SCH ×3 (12:07→23:45)
[2016-11-23] MEDS: Sodium Chloride 0.9% 1,000 ML IV SCH ×3 (00:42→14:16)
[2016-11-23] MEDS: Vancomycin 1 gm/NS 200 ml 1 GM/200 ML BAG IVPB SCH ×2 (02:04→14:00)
[2016-11-23] MEDS: Imipenem/Cilastatin 500 MG in Sodium Chloride 100 ML IVPB SCH ×4 (05:19→23:50)
--- NOTE | 2016-11-23 07:00 | CP.PCM.PN ---
<David Pulliam - Last Filed: 11/23/16 14:02> Subjective - Date & Time of Evaluation Date of Evaluation: 11/23/16 Time of Evaluation: 06:57 - Subjective Subjective: PGY1 Medicine Note for Dr. Cazares Patient seen and examined at bedside this morning. Upon walking into the room, patient was sitting with her feet off the side of the bed smiling. She looks a lot better right away. Patient states that she is no longer experiencing fevers or chills. She states that she is no longer feeling any pain in her abdomen but still has b/l back/flank pains. Patient states she feels much better and is very happy. Denies n/v, d/c, sob, cp or headaches. Objective - Vital Signs/Intake and Output Vital Signs (last 24 hours): Temp Pulse Resp BP Pulse Ox 98.3 F 72 20 100/66 99 11/23/16 00:00 11/23/16 00:00 11/23/16 00:00 11/23/16 00:00 11/23/16 00:00 Intake and Output: 11/22/16 11/23/16 18:59 06:59 Intake Total 1450 Balance 1450 - Medications Medications: Current Medications Acetaminophen (Tylenol 325mg Tab) 650 mg PO Q6 PRN PRN Reason: fever/ MILD pain (1-3) Enoxaparin Sodium (Lovenox) 40 mg SC DAILY [facility] Last Admin: 11/22/16 09:46 Dose: 40 mg Famotidine (Pepcid) 20 mg PO DAILY [facility] Last Admin: 11/22/16 09:46 Dose: 20 mg Vancomycin/Sodium Chloride (Vancomycin 1 Gm/Ns 200 Ml) 1 gm in 200 mls @ 133.333 mls/hr IVPB Q12H [facility] Last Admin: 11/23/16 02:04 Dose: 133.333 mls/hr Imipenem/Cilastatin Sodium 500 (mg/ Sodium Chloride) 100 mls @ 100 mls/hr IVPB Q6H [facility] Last Admin: 11/23/16 05:19 Dose: 100 mls/hr Sodium Chloride (Sodium Chloride 0.9%) 1,000 mls @ 150 mls/hr IV .Q6H40M [facility] Last Admin: 11/23/16 00:42 Dose: Not Given Ketorolac Tromethamine (Toradol) 30 mg IVP Q6 PRN PRN Reason: Pain, moderate (4-7) Last Admin: 11/22/16 11:20 Dose: 30 mg Morphine Sulfate (Morphine) 2 mg IVP Q4 PRN PRN Reason: Pain, severe (8-10) Last Admin: 11/23/16 00:55 Dose: 2 mg Pneumococcal Polyvalent Vaccine (Pneumovax 23 Vaccine) 0.5 ml IM .ONCE ONE Stop: 11/24/16 10:01 - Labs Labs: 11/22/16 06:43 11/22/16 06:43 - Constitutional Appears: Non-toxic, No Acute Distress - Head Exam Head Exam: ATRAUMATIC, NORMOCEPHALIC - Eye Exam Eye Exam: EOMI, Normal appearance. absent: Scleral icterus - ENT Exam ENT Exam: Mucous Membranes Moist - Neck Exam Neck Exam: absent: Lymphadenopathy, Tenderness - Respiratory Exam Respiratory Exam: Clear to Ausculation Bilateral, NORMAL BREATHING PATTERN. absent: Accessory Muscle Use, Rales, Wheezes, Respiratory Distress - Cardiovascular Exam Cardiovascular Exam: REGULAR RHYTHM, +S1, +S2 - GI/Abdominal Exam GI & Abdominal Exam: Soft, Normal Bowel Sounds. absent: Distended, Firm, Guarding, Rigid, Tenderness - Back Exam Back Exam: CVA tenderness (L), CVA tenderness (R). absent: paraspinal tenderness, vertebral tenderness - Neurological Exam Neurological Exam: Alert, Awake, Oriented x3 - Psychiatric Exam Psychiatric exam: Normal Affect, Normal Mood - Skin Skin Exam: Dry, Normal Color, Warm Assessment and Plan - Assessment and Plan (Free Text) Plan: Pyelonephritis b/l 2/2 UTI - ESBL Transvaginal US 11/21/16 - IUD remains in satisfactory position. No sonographic abnormality in the left groin. Abd/Bladder US 11/21/16 - No hydronephrosis or nephrolithiasis. Mild hepatomegaly. Diffuse increased echogenicity in the liver may reflect hepatic steatosis however parenchymal infectious/ inflammatory etiologies cannot be entirely excluded. Clinical and laboratory correlation is advised Abd/Pelvis CT with IV contrast 11/21/16 - Findings consistent with bilateral pyelonephritis as described. The urinary bladder exhibit slight thick-walled appearance which may in part be due to incomplete distention however cystitis must be considered given the patient's history of UTI. . Approximately 3 mm nonobstructing calculus anterior aspect midpole left renal collecting system unchanged from prior study. Hepatomegaly which may in part be due to Lakisha's lobe. Fatty hepatic infiltration. Cholelithiasis. Small fat containing umbilical hernia. In situ Copper-T IUD. Small left adnexal cyst First UA had 8 epith cells Repeat UA - Leuk Shirley 3+, Bact. Rare Urine culture - ESBL E. Coli blood culture - negative at 24 hours continue Vanco 1gm Q12 (started 11/21/16) - discontinued continue Primaxin 500mg IVPB q6 (started 11/22/16) NS @150mL/hr --> decreased to NS @100mL/hr Prophylactic Care Lovenox 40mg SC daily Pepcid 20mg PO daily SCD[facility] Case discussed with Dr. Debora Hernandez Shasha PGY1 <Dominick Cazares - Last Filed: 11/23/16 14:17> Objective - Vital Signs/Intake and Output Vital Signs (last 24 hours): Temp Pulse Resp BP Pulse Ox 97.9 F 74 20 125/83 98 11/23/16 08:04 11/23/16 08:04 11/23/16 08:04 11/23/16 08:04 11/23/16 08:04 Intake and Output: 11/23/16 11/23/16 06:59 18:59 Intake Total 1450 Balance 1450 - Medications Medications: Current Medications Acetaminophen (Tylenol 325mg Tab) 650 mg PO Q6 PRN PRN Reason: fever/ MILD pain (1-3) Enoxaparin Sodium (Lovenox) 40 mg SC DAILY [facility] Last Admin: 11/23/16 09:40 Dose: 40 mg Famotidine (Pepcid) 20 mg PO DAILY [facility] Last Admin: 11/23/16 09:40 Dose: 20 mg Imipenem/Cilastatin Sodium 500 (mg/ Sodium Chloride) 100 mls @ 100 mls/hr IVPB Q6H [facility] Last Admin: 11/23/16 10:58 Dose: 100 mls/hr Sodium Chloride (Sodium Chloride 0.9%) 1,000 mls @ 100 mls/hr IV .Q10H [facility] Last Admin: 11/23/16 14:16 Dose: 100 mls/hr Ketorolac Tromethamine (Toradol) 30 mg IVP Q6 PRN PRN Reason: Pain, moderate (4-7) Last Admin: 11/22/16 11:20 Dose: 30 mg Morphine Sulfate (Morphine) 2 mg IVP Q4 PRN PRN Reason: Pain, severe (8-10) Last Admin: 11/23/16 00:55 Dose: 2 mg Pneumococcal Polyvalent Vaccine (Pneumovax 23 Vaccine) 0.5 ml IM .ONCE ONE Stop: 11/24/16 10:01 - Labs Labs: 11/23/16 08:26 11/23/16 08:26 Attending/Attestation - Attestation I have personally seen and examined this patient.: Yes I have fully participated in the care of the patient.: Yes I have reviewed all pertinent clinical information, including history, physical exam and plan: Yes Notes (Text): 11/23/16 14:17 The patient was seen ambulating in the room today, overall she looks much better than she did yesterday. As we mentioned previously yesterday we switched her antibiotics over to IV Primaxin. And we did this in anticipation that it would be some type of gram-negative culture that would grow out and her urine. Today it returned and was ESBL positive Escherichia coli. Since admission 2 days ago her white blood cell count has been cut in half down to just 8 now. She no longer has a left shift. She tells us on exam that she still has some bilateral flank pain however not like before. She is also not having fevers as well she was previously. She denied having problems going to the bathroom. Denied having any burning urination sensation Not today but tomorrow we'll recheck a urine culture just to get a better idea of she still has T ESBL Escherichia coli resident in the culture. Thank you very much, Dominick Cazares
[2016-11-23 08:45] LABS: BASO # 0.1 K/uL (0.0-0.2); BASO % 0.7 % (0.0-2.0); CHLORIDE 101 mmol/L (98-107); EOS # 0.2 K/uL (0.0-0.7); EOS % 2.2 % (0.0-4.0); HEMATOCRIT 31.4 % (34.0-47.0); LYMPH # 2.7 K/uL (1.0-4.3); LYMPH % 31.3 % (20.0-40.0); MEAN CORPUSCULAR HEMOGLOBIN 31.2 pg (27.0-31.0); MEAN CORPUSCULAR HGB CONC 33.1 g/dL (33.0-37.0); MONO # 0.7 K/uL (0.0-0.8); MONO % 8.2 % (0.0-10.0); RED CELL DISTRIBUTION WIDTH 12.8 % (11.5-14.5); WHITE BLOOD COUNT 8.5 K/uL (4.8-10.8)
[2016-11-23 08:46] LABS: SODIUM 138 mmol/L (132-148)
[2016-11-23 08:48] LABS: BILIRUBIN,TOTAL 0.5 mg/dL (0.2-1.3); CARBON DIOXIDE 25 mmol/L (22-30); GFR AFRICAN-AMERICAN > 60
[2016-11-23 08:49] LABS: ALKALINE PHOSPHATASE 147 U/L (38-126); ALT/SGPT 62 U/L (9-52); AST/SGOT 28 U/L (14-36); BLOOD UREA NITROGEN 4 mg/dL (7-17); CALCIUM 8.5 mg/dl (8.6-10.4); GLUCOSE,RANDOM 122 mg/dL (65-105); TOTAL PROTEIN 7.6 g/dL (6.3-8.3)
[2016-11-23] MEDS: Enoxaparin 40 mg Syringe SC SCH (09:40)
[2016-11-24] MEDS: Sodium Chloride 0.9% 1,000 ML IV SCH ×3 (00:05→20:46)
[2016-11-24] MEDS: Imipenem/Cilastatin 500 MG in Sodium Chloride 100 ML IVPB SCH ×4 (05:31→23:47)
[2016-11-24 08:58] LABS: CHLORIDE 102 mmol/L (98-107)
[2016-11-24 08:59] LABS: POTASSIUM 4.2 mmol/L (3.6-5.2); SODIUM 139 mmol/L (132-148)
[2016-11-24 09:01] LABS: ALKALINE PHOSPHATASE 149 U/L (38-126); ALT/SGPT 56 U/L (9-52); AST/SGOT 25 U/L (14-36); BILIRUBIN,TOTAL 0.5 mg/dL (0.2-1.3); BLOOD UREA NITROGEN 4 mg/dL (7-17); CARBON DIOXIDE 25 mmol/L (22-30); GFR AFRICAN-AMERICAN > 60; GLUCOSE,RANDOM 103 mg/dL (65-105)
[2016-11-24 09:02] LABS: CALCIUM 8.9 mg/dl (8.6-10.4)
[2016-11-24] MEDS: Enoxaparin 40 mg Syringe SC SCH (09:18)
[2016-11-24] MEDS ORDERED: Influenza Vaccine 60 mcg/0.5 mL SYR (4YR UP) IM ONE (10:00)
[2016-11-24] MEDS ORDERED: Pneumococcal 23-Valent Vaccine IM ONE (10:00)
[2016-11-24 16:46] LABS: BASO # 0.1 K/uL (0.0-0.2); BASO % 0.9 % (0.0-2.0); EOS # 0.3 K/uL (0.0-0.7); EOS % 3.8 % (0.0-4.0); HEMATOCRIT 32.1 % (34.0-47.0); LYMPH # 2.2 K/uL (1.0-4.3); LYMPH % 27.7 % (20.0-40.0); MEAN CORPUSCULAR HEMOGLOBIN 31.4 pg (27.0-31.0); MEAN PLATELET VOLUME 9.2 fL (7.2-11.7); MONO # 0.4 K/uL (0.0-0.8); MONO % 5.5 % (0.0-10.0); WHITE BLOOD COUNT 7.9 K/uL (4.8-10.8)
--- NOTE | 2016-11-24 19:37 | CP.PCM.PN ---
<David Pulliam - Last Filed: 11/24/16 19:34> Subjective - Date & Time of Evaluation Date of Evaluation: 11/24/16 Time of Evaluation: 07:35 - Subjective Subjective: PGY1 Medicine Note for Dr. Cazares Patient seen and examined this morning at bedside. Patient states she is feeling much improved. She has a slight pain located in her back still but it is much improved. She reports some itching and discharge coming from her vagina that started last night. Patient states she is eating well. Denies f/c, n/v, d/c , sob, abd pain or cp. Objective - Vital Signs/Intake and Output Vital Signs (last 24 hours): Temp Pulse Resp BP Pulse Ox 98 F 65 20 144/84 99 11/24/16 16:00 11/24/16 16:00 11/24/16 16:00 11/24/16 16:00 11/24/16 16:00 - Medications Medications: Current Medications Acetaminophen (Tylenol 325mg Tab) 650 mg PO Q6 PRN PRN Reason: fever/ MILD pain (1-3) Enoxaparin Sodium (Lovenox) 40 mg SC DAILY [facility] Last Admin: 11/24/16 09:18 Dose: 40 mg Famotidine (Pepcid) 20 mg PO DAILY [facility] Last Admin: 11/24/16 09:18 Dose: 20 mg Fluconazole (Diflucan) 150 mg PO STAT [facility] Stop: 11/24/16 19:34 Imipenem/Cilastatin Sodium 500 (mg/ Sodium Chloride) 100 mls @ 100 mls/hr IVPB Q6H [facility] Last Admin: 11/24/16 17:48 Dose: 100 mls/hr Sodium Chloride (Sodium Chloride 0.9%) 1,000 mls @ 100 mls/hr IV .Q10H [facility] Last Admin: 11/24/16 04:07 Dose: 100 mls/hr Ketorolac Tromethamine (Toradol) 30 mg IVP Q6 PRN PRN Reason: Pain, moderate (4-7) Last Admin: 11/22/16 11:20 Dose: 30 mg Morphine Sulfate (Morphine) 2 mg IVP Q4 PRN PRN Reason: Pain, severe (8-10) Last Admin: 11/23/16 21:32 Dose: 2 mg Pneumococcal Polyvalent Vaccine (Pneumovax 23 Vaccine) 0.5 ml IM .ONCE ONE Stop: 11/26/16 10:01 - Labs Labs: 11/24/16 16:41 11/24/16 08:26 - Constitutional Appears: Non-toxic, No Acute Distress - Head Exam Head Exam: ATRAUMATIC, NORMOCEPHALIC - Eye Exam Eye Exam: EOMI, Normal appearance Pupil Exam: PERRL - ENT Exam ENT Exam: Mucous Membranes Moist - Respiratory Exam Respiratory Exam: Clear to Ausculation Bilateral, Respiratory Distress, NORMAL BREATHING PATTERN. absent: Accessory Muscle Use, Rales, Wheezes - Cardiovascular Exam Cardiovascular Exam: REGULAR RHYTHM, +S1, +S2 - GI/Abdominal Exam GI & Abdominal Exam: Soft, Normal Bowel Sounds. absent: Distended, Firm, Guarding - Extremities Exam Extremities Exam: Normal Capillary Refill, Normal Inspection. absent: Calf Tenderness, Pedal Edema - Back Exam Back Exam: CVA tenderness (L), CVA tenderness (R) - Neurological Exam Neurological Exam: Alert, Awake, Normal Gait - Psychiatric Exam Psychiatric exam: Normal Affect, Normal Mood - Skin Skin Exam: Dry, Normal Color, Warm Assessment and Plan - Assessment and Plan (Free Text) Plan: Pyelonephritis b/l 2/ UTI - ESBL Transvaginal US 11/21/16 - IUD remains in satisfactory position. No sonographic abnormality in the left groin. Abd/Bladder US 11/21/16 - No hydronephrosis or nephrolithiasis. Mild hepatomegaly. Diffuse increased echogenicity in the liver may reflect hepatic steatosis however parenchymal infectious/ inflammatory etiologies cannot be entirely excluded. Clinical and laboratory correlation is advised Abd/Pelvis CT with IV contrast 11/21/16 - Findings consistent with bilateral pyelonephritis as described. The urinary bladder exhibit slight thick-walled appearance which may in part be due to incomplete distention however cystitis must be considered given the patient's history of UTI. . Approximately 3 mm nonobstructing calculus anterior aspect midpole left renal collecting system unchanged from prior study. Hepatomegaly which may in part be due to Lakisha's lobe. Fatty hepatic infiltration. Cholelithiasis. Small fat containing umbilical hernia. In situ Copper-T IUD. Small left adnexal cyst First UA had 8 epith cells Repeat UA - Leuk Shirley 3+, Bact. Rare Urine culture - ESBL E. Coli blood culture - negative at 24 hours Vanco 1gm Q12 (started 11/21/16) - discontinued continue Primaxin 500mg IVPB q6 (started 11/22/16) NS @150mL/hr --> decreased to NS @100mL/hr f/u repeat urine culture Vaginal discharge Patient is at increased risk of yeast infection due to antibiotic use. Patient states this is similar to previous yeast infections. One time dose of Diflucan 150mg PO Prophylactic Care Lovenox 40mg SC daily Pepcid 20mg PO daily [facility] Case discussed with Dr. Debora Pulliam PGY1 <Dominick Cazares H - Last Filed: 11/25/16 09:18> Objective - Vital Signs/Intake and Output Vital Signs (last 24 hours): Temp Pulse Resp BP Pulse Ox 98 F 77 20 110/67 98 11/25/16 08:00 11/25/16 08:00 11/25/16 08:00 11/25/16 08:00 11/25/16 08:00 Intake and Output: 11/25/16 11/25/16 06:59 18:59 Intake Total 2100 Balance 2100 - Medications Medications: Current Medications Acetaminophen (Tylenol 325mg Tab) 650 mg PO Q6 PRN PRN Reason: fever/ MILD pain (1-3) Enoxaparin Sodium (Lovenox) 40 mg SC DAILY [facility] Last Admin: 11/24/16 09:18 Dose: 40 mg Famotidine (Pepcid) 20 mg PO DAILY [facility] Last Admin: 11/24/16 09:18 Dose: 20 mg Imipenem/Cilastatin Sodium 500 (mg/ Sodium Chloride) 100 mls @ 100 mls/hr IVPB Q6H [facility] Last Admin: 11/25/16 05:39 Dose: 100 mls/hr Sodium Chloride (Sodium Chloride 0.9%) 1,000 mls @ 100 mls/hr IV .Q10H [facility] Last Admin: 11/25/16 04:12 Dose: 100 mls/hr Ketorolac Tromethamine (Toradol) 30 mg IVP Q6 PRN PRN Reason: Pain, moderate (4-7) Last Admin: 11/22/16 11:20 Dose: 30 mg Morphine Sulfate (Morphine) 2 mg IVP Q4 PRN PRN Reason: Pain, severe (8-10) Last Admin: 11/23/16 21:32 Dose: 2 mg Pneumococcal Polyvalent Vaccine (Pneumovax 23 Vaccine) 0.5 ml IM .ONCE ONE Stop: 11/26/16 10:01 - Labs Labs: 11/25/16 08:00 11/25/16 08:00 Attending/Attestation - Attestation I have personally seen and examined this patient.: Yes I have fully participated in the care of the patient.: Yes I have reviewed all pertinent clinical information, including history, physical exam and plan: Yes Notes (Text): 11/25/16 09:18 Medical attending: Patient was seen and examined by me, agrees the above note by medical record retrieval specialist. The patient reports feeling much better at this time, as previously mentioned the patient had ESBL Escherichia coli and was changed over to Primaxin. I spoke with the patient's family member over the phone over speakerphone so we could all understand. We are repeating a UA and urine culture Thank you very much, Dominick Cazares
[2016-11-25] MEDS: Sodium Chloride 0.9% 1,000 ML IV SCH ×4 (04:12→22:58)
[2016-11-25] MEDS: Imipenem/Cilastatin 500 MG in Sodium Chloride 100 ML IVPB SCH ×4 (05:39→23:08)
[2016-11-25 08:19] LABS: BASO # 0.1 K/uL (0.0-0.2); BASO % 1.2 % (0.0-2.0); EOS # 0.3 K/uL (0.0-0.7); EOS % 4.6 % (0.0-4.0); LYMPH # 2.2 K/uL (1.0-4.3); LYMPH % 34.1 % (20.0-40.0); MEAN CELL VOLUME 93.2 fL (81.0-99.0); MEAN CORPUSCULAR HGB CONC 34.3 g/dL (33.0-37.0); MEAN PLATELET VOLUME 8.6 fL (7.2-11.7); MONO # 0.3 K/uL (0.0-0.8); MONO % 4.3 % (0.0-10.0); RED CELL DISTRIBUTION WIDTH 12.5 % (11.5-14.5); WHITE BLOOD COUNT 6.3 K/uL (4.8-10.8)
[2016-11-25 08:40] LABS: CHLORIDE 101 mmol/L (98-107); POTASSIUM 4.3 mmol/L (3.6-5.2); SODIUM 137 mmol/L (132-148)
[2016-11-25 08:43] LABS: ALKALINE PHOSPHATASE 135 U/L (38-126); ALT/SGPT 41 U/L (9-52); AST/SGOT 19 U/L (14-36); BILIRUBIN,TOTAL 0.4 mg/dL (0.2-1.3); BLOOD UREA NITROGEN 5 mg/dL (7-17); CALCIUM 8.9 mg/dl (8.6-10.4); CARBON DIOXIDE 26 mmol/L (22-30); GFR AFRICAN-AMERICAN > 60; GLUCOSE,RANDOM 95 mg/dL (65-105); TOTAL PROTEIN 7.8 g/dL (6.3-8.3)
--- NOTE | 2016-11-25 09:40 | CP.PCM.PN ---
<David Pulliam - Last Filed: 11/25/16 13:13> Subjective - Date & Time of Evaluation Date of Evaluation: 11/25/16 Time of Evaluation: 09:36 - Subjective Subjective: PGY1 Medicine Note for Dr. Cazares Patient seen and examined this morning at bedside. Patient states her pain located in her back b/l has improved since yesterday. It is still a 5 out of 10 today. She states she is still experiencing some LUQ pain as well. The patient reports improvement in her vaginal discharge. Objective - Vital Signs/Intake and Output Vital Signs (last 24 hours): Temp Pulse Resp BP Pulse Ox 98 F 77 20 110/67 98 11/25/16 08:00 11/25/16 08:00 11/25/16 08:00 11/25/16 08:00 11/25/16 08:00 Intake and Output: 11/25/16 11/25/16 06:59 18:59 Intake Total 2100 Balance 2100 - Medications Medications: Current Medications Acetaminophen (Tylenol 325mg Tab) 650 mg PO Q6 PRN PRN Reason: fever/ MILD pain (1-3) Enoxaparin Sodium (Lovenox) 40 mg SC DAILY [facility] Last Admin: 11/24/16 09:18 Dose: 40 mg Famotidine (Pepcid) 20 mg PO DAILY [facility] Last Admin: 11/24/16 09:18 Dose: 20 mg Imipenem/Cilastatin Sodium 500 (mg/ Sodium Chloride) 100 mls @ 100 mls/hr IVPB Q6H [facility] Last Admin: 11/25/16 05:39 Dose: 100 mls/hr Sodium Chloride (Sodium Chloride 0.9%) 1,000 mls @ 100 mls/hr IV .Q10H [facility] Last Admin: 11/25/16 04:12 Dose: 100 mls/hr Ketorolac Tromethamine (Toradol) 30 mg IVP Q6 PRN PRN Reason: Pain, moderate (4-7) Last Admin: 11/22/16 11:20 Dose: 30 mg Morphine Sulfate (Morphine) 2 mg IVP Q4 PRN PRN Reason: Pain, severe (8-10) Last Admin: 11/23/16 21:32 Dose: 2 mg Pneumococcal Polyvalent Vaccine (Pneumovax 23 Vaccine) 0.5 ml IM .ONCE ONE Stop: 11/26/16 10:01 - Labs Labs: 11/25/16 08:00 11/25/16 08:00 - Constitutional Appears: Non-toxic, No Acute Distress - Head Exam Head Exam: ATRAUMATIC, NORMOCEPHALIC - Eye Exam Eye Exam: EOMI, Normal appearance - ENT Exam ENT Exam: Mucous Membranes Moist - Neck Exam Neck Exam: Full ROM. absent: Lymphadenopathy - Respiratory Exam Respiratory Exam: Clear to Ausculation Bilateral, NORMAL BREATHING PATTERN. absent: Accessory Muscle Use, Rales, Wheezes, Respiratory Distress - Cardiovascular Exam Cardiovascular Exam: REGULAR RHYTHM, +S1, +S2 - GI/Abdominal Exam GI & Abdominal Exam: Soft, Tenderness (LUQ), Normal Bowel Sounds. absent: Distended, Firm, Guarding, Rigid - Extremities Exam Extremities Exam: absent: Calf Tenderness, Pedal Edema - Back Exam Back Exam: CVA tenderness (L), CVA tenderness (R) - Neurological Exam Neurological Exam: Alert, Awake, Oriented x3 - Psychiatric Exam Psychiatric exam: Normal Affect, Normal Mood - Skin Skin Exam: Dry, Normal Color, Warm Assessment and Plan - Assessment and Plan (Free Text) Plan: Pyelonephritis b/l 2/ UTI - ESBL Transvaginal US 11/21/16 - IUD remains in satisfactory position. No sonographic abnormality in the left groin. Abd/Bladder US 11/21/16 - No hydronephrosis or nephrolithiasis. Mild hepatomegaly. Diffuse increased echogenicity in the liver may reflect hepatic steatosis however parenchymal infectious/ inflammatory etiologies cannot be entirely excluded. Clinical and laboratory correlation is advised Abd/Pelvis CT with IV contrast 11/21/16 - Findings consistent with bilateral pyelonephritis as described. The urinary bladder exhibit slight thick-walled appearance which may in part be due to incomplete distention however cystitis must be considered given the patient's history of UTI. . Approximately 3 mm nonobstructing calculus anterior aspect midpole left renal collecting system unchanged from prior study. Hepatomegaly which may in part be due to Lakisha's lobe. Fatty hepatic infiltration. Cholelithiasis. Small fat containing umbilical hernia. In situ Copper-T IUD. Small left adnexal cyst First UA had 8 epith cells Repeat UA - Leuk Shirley 3+, Bact. Rare Urine culture - ESBL E. Coli blood culture - negative at 3 days continue Primaxin 500mg IVPB q6 (started 11/22/16) NS @100mL/hr f/u repeat urine culture Vaginal discharge - improving Patient is at increased risk of yeast infection due to antibiotic use. Patient states this is similar to previous yeast infections. One time dose of Diflucan 150mg PO Prophylactic Care Lovenox 40mg SC daily Pepcid 20mg PO daily [facility] Case discussed with Dr. Debora Pulliam PGY1 <Dominick Cazares H - Last Filed: 11/25/16 16:18> Objective - Vital Signs/Intake and Output Vital Signs (last 24 hours): Temp Pulse Resp BP Pulse Ox 98 F 77 20 110/67 98 11/25/16 08:00 11/25/16 08:00 11/25/16 08:00 11/25/16 08:00 11/25/16 08:00 Intake and Output: 11/25/16 11/25/16 06:59 18:59 Intake Total 2100 Balance 2100 - Medications Medications: Current Medications Acetaminophen (Tylenol 325mg Tab) 650 mg PO Q6 PRN PRN Reason: fever/ MILD pain (1-3) Enoxaparin Sodium (Lovenox) 40 mg SC DAILY [facility] Last Admin: 11/25/16 10:43 Dose: 40 mg Famotidine (Pepcid) 20 mg PO DAILY [facility] Last Admin: 11/25/16 10:43 Dose: 20 mg Imipenem/Cilastatin Sodium 500 (mg/ Sodium Chloride) 100 mls @ 100 mls/hr IVPB Q6H [facility] Last Admin: 11/25/16 10:53 Dose: 100 mls/hr Sodium Chloride (Sodium Chloride 0.9%) 1,000 mls @ 100 mls/hr IV .Q10H [facility] Last Admin: 11/25/16 04:12 Dose: 100 mls/hr Ketorolac Tromethamine (Toradol) 30 mg IVP Q6 PRN PRN Reason: Pain, moderate (4-7) Last Admin: 11/25/16 10:43 Dose: 30 mg Morphine Sulfate (Morphine) 2 mg IVP Q4 PRN PRN Reason: Pain, severe (8-10) Last Admin: 11/23/16 21:32 Dose: 2 mg Pneumococcal Polyvalent Vaccine (Pneumovax 23 Vaccine) 0.5 ml IM .ONCE ONE Stop: 11/26/16 10:01 - Labs Labs: 11/25/16 08:00 11/25/16 08:00 Attending/Attestation - Attestation I have personally seen and examined this patient.: Yes I have fully participated in the care of the patient.: Yes I have reviewed all pertinent clinical information, including history, physical exam and plan: Yes Notes (Text): 11/25/16 16:13 Medical attending: Patient was seen and examined by me, agrees the above note by medical doctor. The patient was feeling very well today. She did not have any new complaints or concerns. She says that she still has very minimal discomfort at this time. She is tolerating her diet well, she's going to the bathroom well, yesterday we gave her some PO Diflucan due to potential yeast infection she may be developing. Were repeating a UA urine culture, if these are negative will consider discharging the patient sometime tomorrow. I explained this to the patient Thank you very much Dominick Cazares
[2016-11-25] MEDS: Enoxaparin 40 mg Syringe SC SCH (10:43)
[2016-11-26] MEDS: Imipenem/Cilastatin 500 MG in Sodium Chloride 100 ML IVPB SCH (06:11)
[2016-11-26 08:16] LABS: BASO # 0.1 K/uL (0.0-0.2); BASO % 0.4 % (0.0-2.0); EOS # 0.2 K/uL (0.0-0.7); EOS % 1.3 % (0.0-4.0); LYMPH # 1.6 K/uL (1.0-4.3); LYMPH % 10.5 % (20.0-40.0); MEAN CELL VOLUME 93.6 fL (81.0-99.0); MEAN CORPUSCULAR HGB CONC 33.1 g/dL (33.0-37.0); MEAN PLATELET VOLUME 8.6 fL (7.2-11.7); MONO # 0.5 K/uL (0.0-0.8); MONO % 3.5 % (0.0-10.0); RED CELL DISTRIBUTION WIDTH 12.6 % (11.5-14.5)
[2016-11-26 08:21] LABS: WHITE BLOOD COUNT 15.7 K/uL (4.8-10.8)
[2016-11-26 08:24] LABS: CHLORIDE 100 mmol/L (98-107); POTASSIUM 4.7 mmol/L (3.6-5.2); SODIUM 136 mmol/L (132-148)
[2016-11-26 08:26] LABS: AST/SGOT 24 U/L (14-36); BILIRUBIN,TOTAL 0.5 mg/dL (0.2-1.3); CARBON DIOXIDE 25 mmol/L (22-30); GFR AFRICAN-AMERICAN > 60
[2016-11-26 08:27] LABS: ALB/GLOB RATIO 1.2 (1.0-2.1); ALKALINE PHOSPHATASE 131 U/L (38-126); ALT/SGPT 43 U/L (9-52); BLOOD UREA NITROGEN 8 mg/dL (7-17); CALCIUM 8.7 mg/dl (8.6-10.4); GLUCOSE,RANDOM 91 mg/dL (65-105)
[2016-11-26] MEDS ORDERED: Pneumococcal 23-Valent Vaccine IM ONE (10:00)
[2016-11-26] MEDS: Enoxaparin 40 mg Syringe SC SCH (10:55)
[2016-11-26] MEDS: Saccharomyces Boulardi 250 mg Cap PO SCH (12:30)
[2016-11-26] MEDS: Sodium Chloride 0.9% 1,000 ML IV SCH ×3 (13:12→21:51)
--- NOTE | 2016-11-26 15:57 | CP.PCM.PN ---
<David Pulliam - Last Filed: 11/26/16 15:54> Subjective - Date & Time of Evaluation Date of Evaluation: 11/26/16 Time of Evaluation: 15:54 - Subjective Subjective: PGY1 Medicine Note for Dr. Cazares Patient seen and examined this morning at bedside. Patient states that she is feeling much better. She is not experiencing any back pain anymore. Patient report that she is now experiencing extremely watery diarrhea. Patient reports 4 episodes since last night. Denies any blood in the diarrhea. Patient reports some nausea without vomiting with meals. She denies any f/c, sob, chest pain or headaches. Objective - Vital Signs/Intake and Output Vital Signs (last 24 hours): Temp Pulse Resp BP Pulse Ox 98.8 F 80 20 100/72 97 11/26/16 07:59 11/26/16 07:59 11/26/16 07:59 11/26/16 07:59 11/26/16 07:59 Intake and Output: 11/26/16 11/26/16 06:59 18:59 Intake Total 1750 1040 Balance 1750 1040 - Medications Medications: Current Medications Acetaminophen (Tylenol 325mg Tab) 650 mg PO Q6 PRN PRN Reason: fever/ MILD pain (1-3) Enoxaparin Sodium (Lovenox) 40 mg SC DAILY [facility] Last Admin: 11/26/16 10:55 Dose: 40 mg Famotidine (Pepcid) 20 mg PO DAILY [facility] Last Admin: 11/26/16 10:55 Dose: 20 mg Sodium Chloride (Sodium Chloride 0.9%) 1,000 mls @ 150 mls/hr IV .Q6H40M [facility] Last Admin: 11/26/16 13:12 Dose: 150 mls/hr Ketorolac Tromethamine (Toradol) 30 mg IVP Q6 PRN PRN Reason: Pain, moderate (4-7) Last Admin: 11/25/16 22:35 Dose: 30 mg Morphine Sulfate (Morphine) 2 mg IVP Q4 PRN PRN Reason: Pain, severe (8-10) Last Admin: 11/23/16 21:32 Dose: 2 mg Saccharomyces Boulardii (Florastor) 250 mg PO DAILY [facility] Last Admin: 11/26/16 12:30 Dose: 250 mg - Labs Labs: 11/26/16 07:55 11/26/16 07:55 - Constitutional Appears: Non-toxic, No Acute Distress - Head Exam Head Exam: ATRAUMATIC, NORMOCEPHALIC - Eye Exam Eye Exam: EOMI, Normal appearance - ENT Exam ENT Exam: Mucous Membranes Moist - Respiratory Exam Respiratory Exam: Clear to Ausculation Bilateral, NORMAL BREATHING PATTERN. absent: Accessory Muscle Use, Rales, Wheezes, Respiratory Distress - Cardiovascular Exam Cardiovascular Exam: REGULAR RHYTHM, +S1 - GI/Abdominal Exam GI & Abdominal Exam: Soft, Hyperactive Bowel Sounds. absent: Distended, Firm, Guarding, Rigid, Tenderness - Extremities Exam Extremities Exam: absent: Calf Tenderness, Pedal Edema - Back Exam Back Exam: absent: CVA tenderness (L), CVA tenderness (R), paraspinal tenderness , vertebral tenderness - Neurological Exam Neurological Exam: Alert, Awake, Oriented x3 - Psychiatric Exam Psychiatric exam: Normal Affect, Normal Mood - Skin Skin Exam: Dry, Normal Color, Warm Assessment and Plan - Assessment and Plan (Free Text) Plan: Pyelonephritis b/l 2/ UTI - ESBL Transvaginal US 11/21/16 - IUD remains in satisfactory position. No sonographic abnormality in the left groin. Abd/Bladder US 11/21/16 - No hydronephrosis or nephrolithiasis. Mild hepatomegaly. Diffuse increased echogenicity in the liver may reflect hepatic steatosis however parenchymal infectious/ inflammatory etiologies cannot be entirely excluded. Clinical and laboratory correlation is advised Abd/Pelvis CT with IV contrast 11/21/16 - Findings consistent with bilateral pyelonephritis as described. The urinary bladder exhibit slight thick-walled appearance which may in part be due to incomplete distention however cystitis must be considered given the patient's history of UTI. . Approximately 3 mm nonobstructing calculus anterior aspect midpole left renal collecting system unchanged from prior study. Hepatomegaly which may in part be due to Lakisha's lobe. Fatty hepatic infiltration. Cholelithiasis. Small fat containing umbilical hernia. In situ Copper-T IUD. Small left adnexal cyst First UA had 8 epith cells Repeat UA - Leuk Shirley 3+, Bact. Rare Urine culture - ESBL E. Coli blood culture - negative at 3 days continue Primaxin 500mg IVPB q6 (started 11/22/16) - discontinued on 11/26/16 NS @100mL/hr -->increased to 150mL/hr due to new onset watery diarrhea repeat urine culture on 11/24 - No growth Diarrhea Due to Primaxin use, must rule out C. diff f/u C. Diff tox Florastor 250mg PO daily Vaginal discharge - improving Patient is at increased risk of yeast infection due to antibiotic use. Patient states this is similar to previous yeast infections. One time dose of Diflucan 150mg PO Prophylactic Care Lovenox 40mg SC daily Pepcid 20mg PO daily SCDs Dispo: Once stool studies return, if negative for C. Diff, patient can be discharged home. Case discussed with Dr. Debora Pulliam PGY1 <Dominick Cazares - Last Filed: 11/26/16 17:12> Objective - Vital Signs/Intake and Output Vital Signs (last 24 hours): Temp Pulse Resp BP Pulse Ox 98.8 F 80 20 100/72 97 11/26/16 07:59 11/26/16 07:59 11/26/16 07:59 11/26/16 07:59 11/26/16 07:59 Intake and Output: 11/26/16 11/26/16 06:59 18:59 Intake Total 1750 1040 Balance 1750 1040 - Medications Medications: Current Medications Acetaminophen (Tylenol 325mg Tab) 650 mg PO Q6 PRN PRN Reason: fever/ MILD pain (1-3) Enoxaparin Sodium (Lovenox) 40 mg SC DAILY [facility] Last Admin: 11/26/16 10:55 Dose: 40 mg Famotidine (Pepcid) 20 mg PO DAILY [facility] Last Admin: 11/26/16 10:55 Dose: 20 mg Sodium Chloride (Sodium Chloride 0.9%) 1,000 mls @ 150 mls/hr IV .Q6H40M [facility] Last Admin: 11/26/16 13:12 Dose: 150 mls/hr Ketorolac Tromethamine (Toradol) 30 mg IVP Q6 PRN PRN Reason: Pain, moderate (4-7) Last Admin: 11/25/16 22:35 Dose: 30 mg Morphine Sulfate (Morphine) 2 mg IVP Q4 PRN PRN Reason: Pain, severe (8-10) Last Admin: 11/23/16 21:32 Dose: 2 mg Saccharomyces Boulardii (Florastor) 250 mg PO DAILY [facility] Last Admin: 11/26/16 12:30 Dose: 250 mg - Labs Labs: 11/26/16 07:55 11/26/16 07:55 Attending/Attestation - Attestation I have personally seen and examined this patient.: Yes I have fully participated in the care of the patient.: Yes I have reviewed all pertinent clinical information, including history, physical exam and plan: Yes Notes (Text): 11/26/16 17:12 Medical attending: Patient was seen and examined by me, agrees the above note by clinical medical transcriptionist. Family members were present as well. The patient was okay with this Unfortunately the patient developed diarrhea this morning from what I understand she had about 4 episodes of what she described as a very watery diarrhea. She denied having any fevers, denied headaches, denies chills, denies shortness of breath, denied chest pain, She reported she did have + some minimal stomach cramping with the diarrhea. As mentioned previously she's been on antibiotics for some time now to treat the ESBL Escherichia coli, we initially wanted to discharge patient today however with the new onset of diarrhea without check stool studies for any potential C. difficile before consider letting her go. We've also restarted intravenous fluids as well at 150 mL Explained to the patient that if the stool studies are negative we'll consider discharging her tomorrow, but will have to see Thank you very much, Dominick Cazares
[2016-11-26] MEDS: Vancomycin 125 MG/5 ML SOLN (ORAL/RECTAL) PO SCH (19:31)
[2016-11-26] MEDS: metroNIDAZOLE IV 500 mg/100 ml 500 MG/100 ML BAG IVPB SCH (21:51)
[2016-11-27 00:40] VITALS: RESP 20
[2016-11-27] MEDS: Vancomycin 125 MG/5 ML SOLN (ORAL/RECTAL) PO SCH ×5 (05:44→23:47)
[2016-11-27] MEDS: metroNIDAZOLE IV 500 mg/100 ml 500 MG/100 ML BAG IVPB SCH ×3 (05:59→21:36)
[2016-11-27] MEDS: Sodium Chloride 0.9% 1,000 ML IV SCH ×4 (06:01→21:35)
[2016-11-27 09:19] LABS: BASO # 0.1 K/uL (0.0-0.2); BASO % 0.6 % (0.0-2.0); EOS # 0.3 K/uL (0.0-0.7); EOS % 3.4 % (0.0-4.0); HEMATOCRIT 31.7 % (34.0-47.0); LYMPH # 2.3 K/uL (1.0-4.3); LYMPH % 26.5 % (20.0-40.0); MEAN CELL VOLUME 93.7 fL (81.0-99.0); MEAN CORPUSCULAR HEMOGLOBIN 31.3 pg (27.0-31.0); MEAN CORPUSCULAR HGB CONC 33.4 g/dL (33.0-37.0); MEAN PLATELET VOLUME 8.4 fL (7.2-11.7); MONO # 0.3 K/uL (0.0-0.8); MONO % 3.9 % (0.0-10.0); RED CELL DISTRIBUTION WIDTH 12.8 % (11.5-14.5); WHITE BLOOD COUNT 8.5 K/uL (4.8-10.8)
[2016-11-27 09:26] LABS: CHLORIDE 102 mmol/L (98-107); POTASSIUM 4.2 mmol/L (3.6-5.2); SODIUM 136 mmol/L (132-148)
[2016-11-27 09:28] LABS: GFR AFRICAN-AMERICAN > 60
[2016-11-27 09:29] LABS: ALB/GLOB RATIO 1.2 (1.0-2.1); ALKALINE PHOSPHATASE 113 U/L (38-126); ALT/SGPT 40 U/L (9-52); AST/SGOT 21 U/L (14-36); BILIRUBIN,TOTAL 0.3 mg/dL (0.2-1.3); BLOOD UREA NITROGEN 6 mg/dL (7-17); CALCIUM 8.6 mg/dl (8.6-10.4); CARBON DIOXIDE 26 mmol/L (22-30); GLUCOSE,RANDOM 148 mg/dL (65-105); TOTAL PROTEIN 6.5 g/dL (6.3-8.3)
[2016-11-27] MEDS: Saccharomyces Boulardi 250 mg Cap PO SCH (10:19)
[2016-11-27] MEDS: Enoxaparin 40 mg Syringe SC SCH (10:20)
--- NOTE | 2016-11-27 12:13 | CP.PCM.PN ---
Subjective - Date & Time of Evaluation Date of Evaluation: 11/27/16 Time of Evaluation: 11:30 - Subjective Subjective: Patient was moved to room 355 Patient was seen and examined by me, family member was present in the room as well. The patient was okay with this. As mentioned yesterday the patient has unfortunately developed C. difficile Overnight she had 2 more additional episodes of watery nonbloody diarrhea. This morning she reported she had an additional 2 episodes of watery nonbloody diarrhea. She is now on IV Flagyl as well as by mouth vancomycin. She explained that today she did try to take some food however she reported a lot of gas and nausea. She denied vomiting She also denied any urinary complaints Objective - Vital Signs/Intake and Output Vital Signs (last 24 hours): Temp Pulse Resp BP Pulse Ox 98.4 F 70 20 105/65 98 11/27/16 09:21 11/27/16 09:21 11/27/16 09:21 11/27/16 09:21 11/27/16 09:21 Intake and Output: 11/27/16 11/27/16 06:59 18:59 Intake Total 1700 Balance 1700 - Medications Medications: Current Medications Acetaminophen (Tylenol 325mg Tab) 650 mg PO Q6 PRN PRN Reason: fever/ MILD pain (1-3) Enoxaparin Sodium (Lovenox) 40 mg SC DAILY [facility] Last Admin: 11/27/16 10:20 Dose: 40 mg Famotidine (Pepcid) 20 mg PO DAILY [facility] Last Admin: 11/27/16 10:19 Dose: 20 mg Sodium Chloride (Sodium Chloride 0.9%) 1,000 mls @ 150 mls/hr IV .Q6H40M [facility] Last Admin: 11/27/16 08:00 Dose: Not Given Metronidazole (Flagyl) 500 mg in 100 mls @ 100 mls/hr IVPB Q8 [facility] Last Admin: 11/27/16 05:59 Dose: 100 mls/hr Ketorolac Tromethamine (Toradol) 30 mg IVP Q6 PRN PRN Reason: Pain, moderate (4-7) Last Admin: 11/25/16 22:35 Dose: 30 mg Morphine Sulfate (Morphine) 2 mg IVP Q4 PRN PRN Reason: Pain, severe (8-10) Last Admin: 11/23/16 21:32 Dose: 2 mg Saccharomyces Boulardii (Florastor) 250 mg PO DAILY [facility] Last Admin: 11/27/16 10:19 Dose: 250 mg Vancomycin HCl (Vancocin (Oral Or Rectal Use)) 125 mg PO Q6H [facility] Last Admin: 11/27/16 06:01 Dose: 125 mg - Labs Labs: 11/27/16 09:08 11/27/16 09:08 - Constitutional Appears: Well, No Acute Distress - Head Exam Head Exam: NORMAL INSPECTION, NORMOCEPHALIC - Eye Exam Eye Exam: EOMI, Normal appearance - ENT Exam ENT Exam: Mucous Membranes Moist - Respiratory Exam Respiratory Exam: Clear to Ausculation Bilateral, NORMAL BREATHING PATTERN - GI/Abdominal Exam GI & Abdominal Exam: Soft, Tenderness. absent: Distended, Firm, Guarding, Rigid , Normal Bowel Sounds - Neurological Exam Neurological Exam: Alert, Awake, Oriented x3 Neuro motor strength exam: Left Upper Extremity: 5, Right Upper Extremity: 5, Left Lower Extremity: 5, Right Lower Extremity: 5 - Skin Skin Exam: Normal Color, Warm Assessment and Plan - Assessment and Plan (Free Text) Assessment: C Difficile Diarrhea 11/27: We had intended to discharge the patient on 11/26, however she explained to us that that infirmary attendant she developed diarrhea that was nonbloody and very watery. We tested for the stools later on in the afternoon it was positive for C. difficile. She has been on floor store. She was placed on IV Flagyl as well as by mouth vancomycin. We encouraged the patient to take additional by mouth intake, we also restarted intravenous fluids as well. At some given point we need to repeat the stool studies once the patient's diarrhea slows down Pyelonephritis b/l 2/ UTI - ESBL - resolving Transvaginal US 11/21/16 - IUD remains in satisfactory position. No sonographic abnormality in the left groin. Abd/Bladder US 11/21/16 - No hydronephrosis or nephrolithiasis. Mild hepatomegaly. Diffuse increased echogenicity in the liver may reflect hepatic steatosis however parenchymal infectious/ inflammatory etiologies cannot be entirely excluded. Clinical and laboratory correlation is advised Abd/Pelvis CT with IV contrast 11/21/16 - Findings consistent with bilateral pyelonephritis as described. The urinary bladder exhibit slight thick-walled appearance which may in part be due to incomplete distention however cystitis must be considered given the patient's history of UTI. . Approximately 3 mm nonobstructing calculus anterior aspect midpole left renal collecting system unchanged from prior study. Hepatomegaly which may in part be due to Lakisha's lobe. Fatty hepatic infiltration. Cholelithiasis. Small fat containing umbilical hernia. In situ Copper-T IUD. Small left adnexal cyst First UA had 8 epith cells Repeat UA - Leuk Shirley 3+, Bact. Rare Urine culture - ESBL E. Coli blood culture - negative at 3 days continue Primaxin 500mg IVPB q6 (started 11/22/16) - discontinued on 11/26/16 NS @100mL/hr -->increased to 150mL/hr due to new onset watery diarrhea repeat urine culture on 11/24 - No growth Diarrhea Due to Primaxin use, must rule out C. diff f/u C. Diff tox Florastor 250mg PO daily Vaginal discharge - improving Patient is at increased risk of yeast infection due to antibiotic use. Patient states this is similar to previous yeast infections. One time dose of Diflucan 150mg PO Prophylactic Care Lovenox 40mg SC daily Pepcid 20mg PO daily [facility]
[2016-11-28] MEDS: Sodium Chloride 0.9% 1,000 ML IV SCH ×2 (04:06→10:54)
[2016-11-28] MEDS: Vancomycin 125 MG/5 ML SOLN (ORAL/RECTAL) PO SCH ×2 (06:02→13:28)
[2016-11-28 07:37] LABS: BASO # 0.1 K/uL (0.0-0.2); BASO % 1.1 % (0.0-2.0); EOS # 0.3 K/uL (0.0-0.7); EOS % 4.6 % (0.0-4.0); HEMATOCRIT 32.4 % (34.0-47.0); LYMPH # 2.4 K/uL (1.0-4.3); LYMPH % 33.1 % (20.0-40.0); MEAN CELL VOLUME 92.9 fL (81.0-99.0); MEAN CORPUSCULAR HEMOGLOBIN 31.3 pg (27.0-31.0); MEAN CORPUSCULAR HGB CONC 33.7 g/dL (33.0-37.0); MEAN PLATELET VOLUME 8.3 fL (7.2-11.7); MONO # 0.4 K/uL (0.0-0.8); MONO % 5.9 % (0.0-10.0); RED CELL DISTRIBUTION WIDTH 12.6 % (11.5-14.5); WHITE BLOOD COUNT 7.4 K/uL (4.8-10.8)
[2016-11-28 07:39] LABS: CHLORIDE 100 mmol/L (98-107); POTASSIUM 4.5 mmol/L (3.6-5.2); SODIUM 136 mmol/L (132-148)
[2016-11-28 07:42] LABS: ALB/GLOB RATIO 1.2 (1.0-2.1); ALKALINE PHOSPHATASE 111 U/L (38-126); ALT/SGPT 40 U/L (9-52); AST/SGOT 18 U/L (14-36); BILIRUBIN,TOTAL 0.3 mg/dL (0.2-1.3); BLOOD UREA NITROGEN 6 mg/dL (7-17); CALCIUM 8.8 mg/dl (8.6-10.4); CARBON DIOXIDE 26 mmol/L (22-30); GFR AFRICAN-AMERICAN > 60; GLUCOSE,RANDOM 93 mg/dL (65-105); TOTAL PROTEIN 6.9 g/dL (6.3-8.3)
--- NOTE | 2016-11-28 08:07 | CP.PCM.PN ---
Subjective - Date & Time of Evaluation Date of Evaluation: 11/28/16 Time of Evaluation: 08:07 - Subjective Subjective: Medicine Progress Note for Dr. Crocker Patient seen and examined at bedside. Objective - Vital Signs/Intake and Output Vital Signs (last 24 hours): Temp Pulse Resp BP Pulse Ox 98.4 F 65 20 119/80 98 11/27/16 23:53 11/27/16 23:53 11/27/16 23:53 11/27/16 23:53 11/27/16 23:53 Intake and Output: 11/28/16 11/28/16 06:59 18:59 Intake Total 2820 Balance 2820 - Medications Medications: Current Medications Acetaminophen (Tylenol 325mg Tab) 650 mg PO Q6 PRN PRN Reason: fever/ MILD pain (1-3) Enoxaparin Sodium (Lovenox) 40 mg SC DAILY [facility] Last Admin: 11/27/16 10:20 Dose: 40 mg Famotidine (Pepcid) 20 mg PO DAILY [facility] Last Admin: 11/27/16 10:19 Dose: 20 mg Sodium Chloride (Sodium Chloride 0.9%) 1,000 mls @ 150 mls/hr IV .Q6H40M [facility] Last Admin: 11/28/16 04:06 Dose: 150 mls/hr Ketorolac Tromethamine (Toradol) 30 mg IVP Q6 PRN PRN Reason: Pain, moderate (4-7) Last Admin: 11/25/16 22:35 Dose: 30 mg Metronidazole (Flagyl) 500 mg PO Q8 [facility] Last Admin: 11/28/16 06:02 Dose: 500 mg Morphine Sulfate (Morphine) 2 mg IVP Q4 PRN PRN Reason: Pain, severe (8-10) Last Admin: 11/23/16 21:32 Dose: 2 mg Saccharomyces Boulardii (Florastor) 250 mg PO DAILY [facility] Last Admin: 11/27/16 10:19 Dose: 250 mg Vancomycin HCl (Vancocin (Oral Or Rectal Use)) 125 mg PO Q6H [facility] Last Admin: 11/28/16 06:02 Dose: 125 mg - Labs Labs: 11/28/16 07:07 11/28/16 07:07
[2016-11-28] MEDS: Enoxaparin 40 mg Syringe SC SCH (09:08)
[2016-11-28] MEDS: Saccharomyces Boulardi 250 mg Cap PO SCH (09:08)
[2016-11-28 16:42] VITALS: BP 147/91; PULSE 60; TEMP 98.9; O2SAT 99
--- NOTE | 2016-11-28 19:29 | CP.PCM.DIS ---
<Yasmeen Hicks - Last Filed: 11/28/16 19:26> Provider - Provider Date of Admission: 11/23/16 15:08 Attending physician: Dominick Cazares DO Primary care physician: None Consults: None Time Spent in preparation of Discharge (in minutes): 35 Diagnosis - Discharge Diagnosis (1) C. difficile colitis Status: Acute Comment: See summary for details (2) Pyelonephritis Status: Acute Comment: See summary for details (3) UTI (urinary tract infection) Status: Acute Comment: See summary for details Hospital Course - Lab Results Lab Results: Micro Results 11/21/16 09:35 Blood Blood Culture - Final NO GROWTH AFTER 5 DAYS 11/21/16 09:35 Blood Gram Stain - Final TEST NOT PERFORMED 11/21/16 09:15 Blood Blood Culture - Final NO GROWTH AFTER 5 DAYS 11/21/16 09:15 Blood Gram Stain - Final TEST NOT PERFORMED 11/24/16 Unknown Urine Urine Culture - Final No Growth (<1,000 CFU/ML) 11/21/16 10:50 Urine Urine Culture - Final Escherichia Coli Most Recent Lab Values WBC 7.4 K/uL (4.8-10.8) 11/28/16 07:07 RBC 3.48 Mil/uL (3.80-5.20) L 11/28/16 07:07 Hgb 10.9 g/dL (11.0-16.0) L 11/28/16 07:07 Hct 32.4 % (34.0-47.0) L 11/28/16 07:07 MCV 92.9 fL (81.0-99.0) 11/28/16 07:07 MCH 31.3 pg (27.0-31.0) H 11/28/16 07:07 MCHC 33.7 g/dL (33.0-37.0) 11/28/16 07:07 RDW 12.6 % (11.5-14.5) 11/28/16 07:07 Plt Count 391 K/uL (130-400) 11/28/16 07:07 MPV 8.3 fL (7.2-11.7) 11/28/16 07:07 Neut % (Auto) 55.3 % (50.0-75.0) 11/28/16 07:07 Lymph % (Auto) 33.1 % (20.0-40.0) 11/28/16 07:07 Hayes % (Auto) 5.9 % (0.0-10.0) 11/28/16 07:07 Eos % (Auto) 4.6 % (0.0-4.0) H 11/28/16 07:07 Baso % (Auto) 1.1 % (0.0-2.0) 11/28/16 07:07 Neut # 4.1 K/uL (1.8-7.0) 11/28/16 07:07 Lymph # 2.4 K/uL (1.0-4.3) 11/28/16 07:07 Hayes # 0.4 K/uL (0.0-0.8) 11/28/16 07:07 Eos # 0.3 K/uL (0.0-0.7) 11/28/16 07:07 Baso # 0.1 K/uL (0.0-0.2) 11/28/16 07:07 Sodium 136 mmol/L (132-148) 11/28/16 07:07 Potassium 4.5 mmol/L (3.6-5.2) 11/28/16 07:07 Chloride 100 mmol/L (98-107) 11/28/16 07:07 Carbon Dioxide 26 mmol/L (22-30) 11/28/16 07:07 Anion Gap 14 (10-20) 11/28/16 07:07 BUN 6 mg/dL (7-17) L 11/28/16 07:07 Creatinine 0.6 mg/dL (0.7-1.2) L 11/28/16 07:07 Est GFR ( Amer) > 60 11/28/16 07:07 Est GFR (Non-Af Amer) > 60 11/28/16 07:07 Random Glucose 93 mg/dL (65-105) 11/28/16 07:07 Hemoglobin A1c 6.9 % (4.2-6.5) H 11/22/16 06:43 Calcium 8.8 mg/dl (8.6-10.4) 11/28/16 07:07 Total Bilirubin 0.3 mg/dL (0.2-1.3) 11/28/16 07:07 AST 18 U/L (14-36) 11/28/16 07:07 ALT 40 U/L (9-52) 11/28/16 07:07 Alkaline Phosphatase 111 U/L (38-126) 11/28/16 07:07 Total Protein 6.9 g/dL (6.3-8.3) 11/28/16 07:07 Albumin 3.7 g/dL (3.5-5.0) 11/28/16 07:07 Globulin 3.2 gm/dL (2.2-3.9) 11/28/16 07:07 Albumin/Globulin Ratio 1.2 (1.0-2.1) 11/28/16 07:07 Lipase 47 U/L (23-300) 11/21/16 09:37 Urine Color Yellow (YELLOW) 11/21/16 15:44 Urine Clarity Clear (Clear) 11/21/16 15:44 Urine pH 6.0 (5.0-8.0) 11/21/16 15:44 Ur Specific [place] > 1.060 (1.003-1.030) H 11/21/16 15:44 Urine Protein Negative mg/dL (NEGATIVE) 11/21/16 15:44 Urine Glucose (UA) Normal mg/dL (Normal) 11/21/16 15:44 Urine Ketones Negative mg/dL (NEGATIVE) 11/21/16 15:44 Urine Blood Negative (NEGATIVE) 11/21/16 15:44 Urine Nitrate Negative (NEGATIVE) 11/21/16 15:44 Urine Bilirubin Negative (NEGATIVE) 11/21/16 15:44 Urine Urobilinogen 2.0 mg/dL (0.2-1.0) H 11/21/16 15:44 Ur Leukocyte Esterase 3+ Jg/uL (Negative) H 11/21/16 15:44 Urine WBC (Auto) 56 /hpf (0-5) H 11/21/16 15:44 Urine RBC (Auto) 5 /hpf (0-3) H 11/21/16 15:44 Ur Squamous Epith Cells 1 /hpf (0-5) 11/21/16 15:44 Urine Bacteria Rare (<OCC) 11/21/16 15:44 Urine HCG, Qual Negative (NEGATIVE) 11/21/16 09:37 Vancomycin Trough < 5.0 ug/mL (5.0-10.0) L 11/22/16 14:29 C. difficile Ag & Toxin Positive (NEGATIVE) H 11/26/16 16:00 Influenza Typ A,B (EIA) Negative for flu a/b (NEGATIVE) 11/21/16 09:11 - Hospital Course Hospital Course: Upon admission: Patient is a 41 year old female with recent PMHx of UTI with possible kidney stone two weeks ago, and recent completion of a course of Cipro 5 days ago at home. Patient has no other PMH and take no medications regularly at home. She presents to the ED today for bilateral lower back pain radiating to the lower abdomen, left worse than right. The pain had been slightly improved with the Cipro but worsened after the end of the course. Associated symptoms include subjective fever, chills, loss of appetite, headache, and dizziness since yesterday. Patient did not take her temperature at home or try OTC medications. Denies sick contacts, nausea, vomiting, abdominal pain, diarrhea, constipation, dysuria, urinary frequency, hematuria Hospital Course: Patient was admitted for possible pyelonephritis. On 11/21/16 the following imaging was done: Transvaginal US was done showing IUD remaining in satisfactory position and no sonographic abnormality in the left groin. Abd/Bladder US - No hydronephrosis or nephrolithiasis. Mild hepatomegaly. Diffuse increased echogenicity in the liver may reflect hepatic steatosis however parenchymal infectious/ inflammatory etiologies cannot be entirely excluded. Clinical and laboratory correlation is advised. Abd/Pelvis CT with IV contrast - Findings consistent with bilateral pyelonephritis as described. The urinary bladder exhibit slight thick-walled appearance which may in part be due to incomplete distention however cystitis must be considered given the patient's history of UTI. . Approximately 3 mm nonobstructing calculus anterior aspect midpole left renal collecting system unchanged from prior study. Hepatomegaly which may in part be due to Lakisha's lobe. Fatty hepatic infiltration. Cholelithiasis. Small fat containing umbilical hernia. In situ Copper-T IUD. Small left adnexal cyst. UA and culture were done confirming ESBL E. coli infection. Blood cultures were negative. Primaxin was started 11/22 and subsequently discontinued on 11/26 as repeat urine cultures were found to be negative. 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 We tested for the stools later on in the afternoon it was positive for C. difficile. She has been on florastor 250 mg PO QD. She was placed on IV Flagyl as well as by mouth vancomycin. Patient had a normal BM 11/28 and felt much better without abdominal pain. Patient began having vaginal discharge and puritis and given her increased risk of yeast infection due to antibiotic use, she was given one time dose of Diflucan 150mg PO with a prescription for a second dose in 72 hours. Upon Discharge: Patient seen and examined at bedside. Patient clear for discharge per Dr. Crocker. Patient was discharged with the following instructions: Please fill and take the following medications: Flagyl 500 mg PO Q8h x10 days for treatment of C. diff colitis (Do not take within 2 hours of probiotics, however taking a probiotic or eating yogurt with live/active cultures is recommended) Diflucan 150 mg PO Once 3 days after discharge from the hospital (12/01/16) for treatment of vaginal yeast infection Please follow up with your primary care provider, Dr. Suarez within 1 week for continuity of care. Please note that this is a summary of events. For more details please see complete medical record. Discharge Exam - Head Exam Head Exam: NORMAL INSPECTION, NORMOCEPHALIC - Eye Exam Eye Exam: EOMI - ENT Exam ENT Exam: Mucous Membranes Moist - Respiratory Exam Respiratory Exam: Clear to PA & Lateral - Cardiovascular Exam Cardiovascular Exam: REGULAR RHYTHM, +S1, +S2 - GI/Abdominal Exam GI & Abdominal Exam: Normal Bowel Sounds, Unremarkable - Exam External exam: Erythema - Extremities Exam Extremities exam: normal inspection - Neurological Exam Neurological exam: Alert, Oriented x3 - Psychiatric Exam Psychiatric exam: Normal Affect, Normal Mood - Skin Skin Exam: Dry, Intact, Normal Color, Warm Discharge Plan - Discharge Medications Prescriptions: Fluconazole [Diflucan] 150 mg PO ONCE #1 tab metroNIDAZOLE [Flagyl] 500 mg PO Q8 #30 tab - Follow Up Plan Condition: STABLE Disposition: HOME/ ROUTINE Instructions: Metronidazole (By mouth), Fluconazole (By mouth), Probiotic (By mouth), Urinary Tract Infection in Women (DC), Acute Pyelonephritis (DC) Additional Instructions: Please fill and take the following medications: Flagyl 500 mg PO Q8h x10 days for treatment of C. diff colitis (Do not take within 2 hours of probiotics, however taking a probiotic or eating yogurt with live/active cultures is recommended) Diflucan 150 mg PO Once 3 days after discharge from the hospital (12/01/16) for treatment of vaginal yeast infection Please follow up with your primary care provider, Dr. Suarez within 1 week for continuity of care. Referrals: Gale Suarez [Staff Provider] - <Katheryn Crocker - Last Filed: 11/29/16 16:48> Provider - Provider Date of Admission: 11/23/16 15:08 Attending physician: Dominick Cazares DO Hospital Course - Lab Results Lab Results: Micro Results 11/21/16 09:35 Blood Blood Culture - Final NO GROWTH AFTER 5 DAYS 11/21/16 09:35 Blood Gram Stain - Final TEST NOT PERFORMED 11/21/16 09:15 Blood Blood Culture - Final NO GROWTH AFTER 5 DAYS 11/21/16 09:15 Blood Gram Stain - Final TEST NOT PERFORMED 11/24/16 Unknown Urine Urine Culture - Final No Growth (<1,000 CFU/ML) 11/21/16 10:50 Urine Urine Culture - Final Escherichia Coli Most Recent Lab Values WBC 7.4 K/uL (4.8-10.8) 11/28/16 07:07 RBC 3.48 Mil/uL (3.80-5.20) L 11/28/16 07:07 Hgb 10.9 g/dL (11.0-16.0) L 11/28/16 07:07 Hct 32.4 % (34.0-47.0) L 11/28/16 07:07 MCV 92.9 fL (81.0-99.0) 11/28/16 07:07 MCH 31.3 pg (27.0-31.0) H 11/28/16 07:07 MCHC 33.7 g/dL (33.0-37.0) 11/28/16 07:07 RDW 12.6 % (11.5-14.5) 11/28/16 07:07 Plt Count 391 K/uL (130-400) 11/28/16 07:07 MPV 8.3 fL (7.2-11.7) 11/28/16 07:07 Neut % (Auto) 55.3 % (50.0-75.0) 11/28/16 07:07 Lymph % (Auto) 33.1 % (20.0-40.0) 11/28/16 07:07 Hayes % (Auto) 5.9 % (0.0-10.0) 11/28/16 07:07 Eos % (Auto) 4.6 % (0.0-4.0) H 11/28/16 07:07 Baso % (Auto) 1.1 % (0.0-2.0) 11/28/16 07:07 Neut # 4.1 K/uL (1.8-7.0) 11/28/16 07:07 Lymph # 2.4 K/uL (1.0-4.3) 11/28/16 07:07 Hayes # 0.4 K/uL (0.0-0.8) 11/28/16 07:07 Eos # 0.3 K/uL (0.0-0.7) 11/28/16 07:07 Baso # 0.1 K/uL (0.0-0.2) 11/28/16 07:07 Sodium 136 mmol/L (132-148) 11/28/16 07:07 Potassium 4.5 mmol/L (3.6-5.2) 11/28/16 07:07 Chloride 100 mmol/L (98-107) 11/28/16 07:07 Carbon Dioxide 26 mmol/L (22-30) 11/28/16 07:07 Anion Gap 14 (10-20) 11/28/16 07:07 BUN 6 mg/dL (7-17) L 11/28/16 07:07 Creatinine 0.6 mg/dL (0.7-1.2) L 11/28/16 07:07 Est GFR ( Amer) > 60 11/28/16 07:07 Est GFR (Non-Af Amer) > 60 11/28/16 07:07 Random Glucose 93 mg/dL (65-105) 11/28/16 07:07 Hemoglobin A1c 6.9 % (4.2-6.5) H 11/22/16 06:43 Calcium 8.8 mg/dl (8.6-10.4) 11/28/16 07:07 Total Bilirubin 0.3 mg/dL (0.2-1.3) 11/28/16 07:07 AST 18 U/L (14-36) 11/28/16 07:07 ALT 40 U/L (9-52) 11/28/16 07:07 Alkaline Phosphatase 111 U/L (38-126) 11/28/16 07:07 Total Protein 6.9 g/dL (6.3-8.3) 11/28/16 07:07 Albumin 3.7 g/dL (3.5-5.0) 11/28/16 07:07 Globulin 3.2 gm/dL (2.2-3.9) 11/28/16 07:07 Albumin/Globulin Ratio 1.2 (1.0-2.1) 11/28/16 07:07 Lipase 47 U/L (23-300) 11/21/16 09:37 Urine Color Yellow (YELLOW) 11/21/16 15:44 Urine Clarity Clear (Clear) 11/21/16 15:44 Urine pH 6.0 (5.0-8.0) 11/21/16 15:44 Ur Specific [place] > 1.060 (1.003-1.030) H 11/21/16 15:44 Urine Protein Negative mg/dL (NEGATIVE) 11/21/16 15:44 Urine Glucose (UA) Normal mg/dL (Normal) 11/21/16 15:44 Urine Ketones Negative mg/dL (NEGATIVE) 11/21/16 15:44 Urine Blood Negative (NEGATIVE) 11/21/16 15:44 Urine Nitrate Negative (NEGATIVE) 11/21/16 15:44 Urine Bilirubin Negative (NEGATIVE) 11/21/16 15:44 Urine Urobilinogen 2.0 mg/dL (0.2-1.0) H 11/21/16 15:44 Ur Leukocyte Esterase 3+ Jg/uL (Negative) H 11/21/16 15:44 Urine WBC (Auto) 56 /hpf (0-5) H 11/21/16 15:44 Urine RBC (Auto) 5 /hpf (0-3) H 11/21/16 15:44 Ur Squamous Epith Cells 1 /hpf (0-5) 11/21/16 15:44 Urine Bacteria Rare (<OCC) 11/21/16 15:44 Urine HCG, Qual Negative (NEGATIVE) 11/21/16 09:37 Vancomycin Trough < 5.0 ug/mL (5.0-10.0) L 11/22/16 14:29 C. difficile Ag & Toxin Negative (NEGATIVE) 11/28/16 21:12 Influenza Typ A,B (EIA) Negative for flu a/b (NEGATIVE) 11/21/16 09:11 Attending/Attestation - Attestation I have personally seen and examined this patient.: Yes I have fully participated in the care of the patient.: Yes I have reviewed all pertinent clinical information, including history, physical exam and plan: Yes Notes (Text): 11/29/16 16:47 Patient was seen and examined on the day of discharge.Agree with the documentation of the assessment and plan of the resident
== END 2016-11-28 18:05 | disposition home or self-care (01) | DRG 320 ==
LOC: C.ER 08:35 → C.9E 11:38 → C.3T 16:23 → OBSVTOIN 11-23 15:08 → C.3T 11-23 21:32
PROVIDERS: ADMIT Hospitalist; ATTEND Hospitalist
DX: N12 Tubulo-interstitial nephritis, not specified as acute or chronic (principal); A04.72 Enterocolitis due to Clostridium difficile, not specified as recurrent; E11.22 Type 2 diabetes mellitus with diabetic chronic kidney disease; B37.3 Candidiasis of vulva and vagina; B96.20 Unspecified Escherichia coli [E. coli] as the cause of diseases classified elsewhere; D64.9 Anemia, unspecified; Z16.12 Extended spectrum beta lactamase (ESBL) resistance; K42.9 Umbilical hernia without obstruction or gangrene; N18.9 Chronic kidney disease, unspecified; N89.8 Other specified noninflammatory disorders of vagina; Z87.440 Personal history of urinary (tract) infections; Z87.442 Personal history of urinary calculi